=== PATIENT | female | born 1965 | race Caucasian/White ===

== ENCOUNTER 2022-01-23 08:54 | Inpatient (IN) ==
[~2022-01-23 08:54] MED LIST: PIPERACILLIN/TAZOBACTAM 3.375 GM in DEXTROSE 5% 100 ML IV SCH
[2022-01-23] MEDS ORDERED: ONDANSETRON INJ 2 MG/ML 2 ML VIAL IV STA (09:06)
[2022-01-23] MEDS ORDERED: SODIUM CHLORIDE 0.9% 1000ML 1,000 ML IV STA (09:06)
[2022-01-23] MEDS ORDERED: PANTOprazole 80 MG in DEXTROSE 5% 100 ML IV STA (09:12)
[2022-01-23] MEDS ORDERED: fentaNYL citrate 100 MCG/2 ML VIAL IV STA (09:12)
--- NOTE | 2022-01-23 09:15 | Emergency Department Note ---
Impression & Plan Choledocholithiasis with acute cholecystitis, Elevated bilirubin, Transaminitis ED Provider Note Provider: Dante Lopez MD DATE OF SERVICE: 01/23/2022 CHIEF COMPLAINT: Abdominal pain HISTORY OF PRESENT ILLNESS: Patient is a 56-year-old female history of hypertension, diabetes, and GERD presenting here today stating of past several weeks with worsening yesterday and overnight. Reports some nausea vomiting and diarrhea but denies any urinary symptoms. Tried some Tylenol but vomited this up at home. No trauma reported. No other sick contacts. Did have a history of bariatric surgery and hysterectomy in the past with gastric sleeve by her report. Has been taken omeprazole until yesterday when she thinks she threw it up. Upper abdominal pain slight radiation to the back. No lower abdominal symptoms of significance. States it hurts when she takes a deep breath with maybe a few twinges of slight chest pain at times. No suspect food intake. Patient states she feels very thirsty but again just throws everything up she tries to eat or drink. Denies any significant blood in the vomitus or diarrhea. Minimal diarrhea in the overnight. REVIEW OF SYSTEMS: A total of 10 review of systems was obtained and negative except as stated above in the HPI. PAST MEDICAL HISTORY: As noted above MEDICATIONS: Reviewed home medications SOCIAL HISTORY: PHYSICAL EXAM: GENERAL: alert and oriented in no acute distress on stretcher but appears mildly uncomfortable Head: normocephalic and atraumatic EYES: No injection, discharge or icterus. NECK: Trachea midline. ENT: Mucous membranes pink and moist LUNGS: Airway patent. No retractions or tachypnea HEART: Regular rate and rhythm. No chest wall tenderness ABDOMEN: Soft with no significant lower abdominal tenderness. Mild to moderate epigastric tenderness without peritonitis. No guarding. SKIN: Acyanotic, warm, dry, without rashes EXTREMITIES: Without swelling, tenderness or deformity NEUROLOGICAL: No focal deficits. No aphasia. No facial droop or slurred speech. Ambulatory. EK bpm sinus tachycardia. No PVC or PAC. No acute ST segment elevation. Nonspecific inferior lateral T wave changes. QTc 425. CONTINUOUS CARDIAC MONITORING: was ordered and showed a heart rate of 90s-100s bpm in normal sinus rhythm to sinus tachycardia Patient's laboratory studies and imaging reviewed. Differential includes Appendicitis, infections, diverticulitis, UTI, obstruction, mesenteric ischemia, aortic pathology, inflammatory bowel disease, renal colic, PUD, pancreatitis, biliary pathology, hernia, volvulus, constipation, as well as other pathologies. IMPRESSION/MEDICAL DECISION MAKING: No sick contacts, suspect food intake, recent travel. History of bariatric surgery. Epigastric tenderness. Not really a Ross sign. No significant lower abdominal tenderness. Given history of surgical procedures here hand complaints did complete a CT scan of the abdomen pelvis. EKG and basic labs sent as well as troponin. Seems less likely to be cardiac given the constellation of her symptoms. No other sick contacts but could possibly reflect gastroenteritis. Lipase sent as well as LFTs to look for signs of hepatitis or pancreatitis. Treated symptomatically with IV fluids, Zofran, and fentanyl she states she has tolerated IV narcotics before. Blood work here without significant leukocytosis or anemia. Borderline sodium of 135 with some hypokalemia 3.1 noted. No lipase elevation. AST ALT and alkaline phosphatase as well as total bilirubin are elevated. Normal creatinine. CT scan report per radiology shows evidence of biliary duct dilation and acute cholecystitis likely due to stone. Nonspecific enteritis was also suggested per the report. Given this discussed with the surgical team and also gastroenterology given possible need for ERCP. GI evaluated and plans for ERCP. We will have the medicine team evaluate for admission at this time. Empirically covered with cefoxitin and Flagyl in discussion with pharmacy. DIAGNOSIS: Choledocholithiasis, elevated bilirubin, transaminitis, cholecystitis DISPOSITION: Hospitalist will evaluate Patient was agreeable with this plan. Past Med/Surg History Medical History (Updated 01/23/22 @ 12:45 by Tisha Tinajero MD) Acid reflux Bilateral primary osteoarthritis of knee Diabetes mellitus GERD (gastroesophageal reflux disease) HLD (hyperlipidemia) HTN (hypertension) Obesity Tear of medial meniscus of right knee Tear of peroneal tendon of right foot Surgical History History of ankle surgery R ANKLE - NO HARDWARE History of arthroscopy of left knee History of gastric surgery GASTRIC SLEEVE 3 YR AGO History of hysterectomy PONV (postoperative nausea and vomiting) S/P right knee arthroscopy Family History Mother Family history of diabetes mellitus Brother Family history of diabetes mellitus Brother Family history of diabetes mellitus Sister Family history of diabetes mellitus Sister Family history of diabetes mellitus Social History Smoking Status: Never smoker Hx Alcohol Use: No Preferred Language: Tajik Communication Ability: Effective Visual Impairment: No Limitations Process Supervisor Required: No Beliefs That Will Affect Care: Oriental Orthodox Oriental Orthodox Beliefs: TAOISM Current Living Situation: Spouse and Family Current Living Situation Comment: [facility] AGE 9 Feels Safe at Home: Yes Assistive Devices: Glasses Allergies Allergies Allergy/AdvReac Type Severity Reaction Status Date / Time acetaminophen [From Percocet] AdvReac Unknown THROAT Verified 10/20/21 10:17 SWELLING hydrocodone [From Vicodin] AdvReac Unknown THROAT Verified 10/20/21 10:17 SWELLING oxycodone [From Percocet] AdvReac Unknown THROAT Verified 10/20/21 10:17 SWELLING Penicillins AdvReac Unknown STOMACH Verified 10/20/21 10:17 PROBLEMS Sulfa (Sulfonamide AdvReac Unknown STOMACH Verified 10/20/21 10:17 Antibiotics) PROBLEMS Home Meds Home Medications Medication Instructions Recorded Confirmed aspirin 81 mg tablet,delayed 81 mg PO DAILY 11/25/19 01/23/22 release hydrochlorothiazide 25 mg tablet 25 mg PO QAM 11/25/19 01/23/22 multivitamin 1 tab PO DAILY 06/12/21 01/23/22 omeprazole 20 mg capsule,delayed 20 mg PO DAILY 06/12/21 01/23/22 release potassium chloride 10 mEq 10 meq PO BID 10/20/21 01/23/22 capsule,extended release ferrous sulfate 325 mg (65 mg 325 mg PO DAILY 01/23/22 01/23/22 iron) tablet (Iron (ferrous sulfate)) metformin 500 mg tablet 1,000 mg PO BID 01/23/22 01/23/22 Results & Data (ED) Vital Signs Vital Signs - 24 hr 01/23/22 09:01 01/23/22 09:10 01/23/22 09:26 Temperature 36.8 C Temperature Source Temporal Artery Scan Pulse Rate 98 H 92 H Pulse Rate [Apical] 92 H Respiratory Rate 16 18 Respiratory Effort / Characteristics Non-Labored Spontaneous Non-Labored Respiratory Depth Normal Normal Respiratory Pattern Blood Pressure 127/84 Blood Pressure [Right Arm] 158/116 H Blood Pressure Mean 98 Blood Pressure Mean [Right Arm] 130 Pulse Oximetry 97 98 99 Oxygen Delivery Method Room Air Room Air Sepsis Recent Fever Within 48 Hours No Sepsis New/Unexplained Change in Mental Status No Sepsis Action Taken by Nursing No Action Required 01/23/22 10:05 Temperature Temperature Source Pulse Rate Pulse Rate [Apical] 99 H Respiratory Rate 18 Respiratory Effort / Characteristics Non-Labored Respiratory Depth Normal Respiratory Pattern Regular Blood Pressure Blood Pressure [Right Arm] 155/82 H Blood Pressure Mean Blood Pressure Mean [Right Arm] 106 Pulse Oximetry 97 Oxygen Delivery Method Room Air Sepsis Recent Fever Within 48 Hours Sepsis New/Unexplained Change in Mental Status Sepsis Action Taken by Nursing Laboratory Data Result diagrams: 01/23/22 09:22 01/23/22 09:22 Lab Results 01/23/22 01/23/22 01/23/22 Range/Units 09: 09: 10:39 WBC 6.02 (4.8-10.8) K/ul RBC 5.35 H (3.93-5.22) M/uL Hgb 15.1 (12.0-16.0) g/dl Hct 44.9 (34.1-44.9) % MCV 83.9 (80.0-100.0) fL MCH 28.2 (25.0-34.0) pg MCHC 33.6 (32.0-36.0) g/dL RDW Std Deviation 41.5 (36.4-46.3) fL RDW Coeff of Marisel 13.6 (11.5-14.5) % Plt Count 335 (130-400) K/uL MPV 10.9 (9.4-12.3) fL Immature Gran % (Auto) 0.2 % Neut % (Auto) 88.0 % Lymph % (Auto) 6.6 % Angelina % (Auto) 4.0 % Eos % (Auto) 0.5 % Baso % (Auto) 0.7 % Neut # (Auto) 5.30 (1.4-6.5) K/uL Lymph # (Auto) 0.40 L (1.2-3.4) K/uL Angelina # (Auto) 0.24 (0.24-0.82) K/uL Eos # (Auto) 0.03 (0-0.50) K/uL Baso # (Auto) 0.04 (0-0.2) K/uL Immature Gran # (Auto) 0.01 (0.00-0.02) K/uL Sodium 135 L (136-145) mmol/L Potassium 3.1 L (3.5-5.1) mmol/L Chloride 90 L (98-107) mmol/L Carbon Dioxide 31 (21-32) mmol/L Anion Gap 14 H (3-11) BUN 10 (6-23) mg/dl Creatinine 0.78 (0.6-1.2) mg/dl Est Cr Clr Drug Dosing 74.2 ml/min Est GFR ( Amer) 97.1 ml/min Est GFR (Non-Af Amer) 83.8 ml/min BUN/Creatinine Ratio 12.8 (10-20) Glucose 215 H (70-99(Fasting)) mg/dl Calcium 9.6 (8.5-10.1) mg/dl Total Bilirubin 4.8 H (0.2-1.0) mg/dl AST 231 H (13-39) U/L ALT 144 H (7-52) U/L Alkaline Phosphatase 973 H (34-104) U/L Troponin I High Sens 4.7 (0-14) pg/ml Total Protein 8.0 (6.0-8.3) gm/dl Albumin 4.5 (3.4-5.0) gm/dl Globulin 3.5 (2.5-4.0) gm/dl Albumin/Globulin Ratio 1.3 (0.9-2) Lipase 64 (11-82) U/L Urine Color Urine Appearance (Clear) Urine pH (4.5-7.5) Ur Specific Holmes (1.000-1.030) Urine Protein (Negative) Urine Glucose (UA) (Negative) Urine Ketones (Negative) Urine Blood (Negative) Urine Nitrite (Negative) Urine Bilirubin (Negative) Urine Urobilinogen (Negative) Ur Leukocyte Esterase (Negative) SARS-CoV-2, RNA, NAAT NEGATIVE (NEGATIVE) 01/23/22 Range/Units 12:10 WBC (4.8-10.8) K/ul RBC (3.93-5.22) M/uL Hgb (12.0-16.0) g/dl Hct (34.1-44.9) % MCV (80.0-100.0) fL MCH (25.0-34.0) pg MCHC (32.0-36.0) g/dL RDW Std Deviation (36.4-46.3) fL RDW Coeff of Marisel (11.5-14.5) % Plt Count (130-400) K/uL MPV (9.4-12.3) fL Immature Gran % (Auto) % Neut % (Auto) % Lymph % (Auto) % Angelina % (Auto) % Eos % (Auto) % Baso % (Auto) % Neut # (Auto) (1.4-6.5) K/uL Lymph # (Auto) (1.2-3.4) K/uL Angelina # (Auto) (0.24-0.82) K/uL Eos # (Auto) (0-0.50) K/uL Baso # (Auto) (0-0.2) K/uL Immature Gran # (Auto) (0.00-0.02) K/uL Sodium (136-145) mmol/L Potassium (3.5-5.1) mmol/L Chloride (98-107) mmol/L Carbon Dioxide (21-32) mmol/L Anion Gap (3-11) BUN (6-23) mg/dl Creatinine (0.6-1.2) mg/dl Est Cr Clr Drug Dosing ml/min Est GFR ( Amer) ml/min Est GFR (Non-Af Amer) ml/min BUN/Creatinine Ratio (10-20) Glucose (70-99(Fasting)) mg/dl Calcium (8.5-10.1) mg/dl Total Bilirubin (0.2-1.0) mg/dl AST (13-39) U/L ALT (7-52) U/L Alkaline Phosphatase (34-104) U/L Troponin I High Sens (0-14) pg/ml Total Protein (6.0-8.3) gm/dl Albumin (3.4-5.0) gm/dl Globulin (2.5-4.0) gm/dl Albumin/Globulin Ratio (0.9-2) Lipase (11-82) U/L Urine Color Dark Yellow Urine Appearance Clear (Clear) Urine pH 7.0 (4.5-7.5) Ur Specific Holmes > 1.045 H (1.000-1.030) Urine Protein Negative (Negative) Urine Glucose (UA) 1+ H (Negative) Urine Ketones Negative (Negative) Urine Blood Negative (Negative) Urine Nitrite Negative (Negative) Urine Bilirubin 1+ H (Negative) Urine Urobilinogen Positive H (Negative) Ur Leukocyte Esterase Negative (Negative) SARS-CoV-2, RNA, NAAT (NEGATIVE) Administered Medications Discontinued Medications Fentanyl Citrate (Fentanyl Citrate 100 Mcg/2 Ml Vial) 50 mcg IV NOW STA Stop: 01/23/22 09:13 Last Admin: 01/23/22 09:29 Dose: 50 mcg Documented By: NATALY Sodium Chloride (Nss 1000ml) 1,000 mls @ 999 mls/hr IV .Q1H1M STA Stop: 01/23/22 10:06 Last Infusion: 01/23/22 10:32 Dose: 0 mls/hr Documented By: Admin: 01/23/22 09:29 Dose: 999 mls/hr Documented By: NATALY Pantoprazole Sodium 80 mg/ (Dextrose) 100 mls @ 400 mls/hr IV ONE STA Stop: 01/23/22 09:26 Last Infusion: 01/23/22 10:02 Dose: 0 mls/hr Documented By: Admin: 01/23/22 09:30 Dose: 400 mls/hr Documented By: NATALY Sodium Chloride (Nss 1000ml) 1,000 mls @ 999 mls/hr IV .Q1H1M ONE Stop: 01/23/22 11:56 Last Admin: 01/23/22 12:12 Dose: 999 mls/hr Documented By: ATTILA Metronidazole (Flagyl) 500 mg in 100 mls @ 100 mls/hr IV NOW STA Stop: 01/23/22 12:28 Last Admin: 01/23/22 12:12 Dose: 100 mls/hr Documented By: ATTILA Ioversol (Optiray 350 100ml) 94 ml IV ONCE ONE Stop: 01/23/22 10:20 Last Admin: 01/23/22 10:19 Dose: 94 ml Documented By: SOHEILA Ondansetron HCl (Ondansetron Inj 2 Mg/Ml 2 Ml Vial) 4 mg IV NOW STA Stop: 01/23/22 09:07 Last Admin: 01/23/22 09:30 Dose: 4 mg Documented By: NATALY Imaging Data Radiologist's Impression: Abdomen/Pelvis CT 01/23/22 09:06 CT SCAN OF THE ABDOMEN AND PELVIS WITH IV CONTRAST CLINICAL HISTORY: Right-sided abdominal pain. Nausea and vomiting. Diarrhea. COMPARISON STUDY: No priors. TECHNIQUE: Following the IV administration of 94 cc of Optiray 350, CT scan of the abdomen and pelvis is performed from the lung bases to the proximal femora. Images are reviewed in the axial, sagittal, and coronal planes. IV contrast was administered without complication. A dose lowering technique was utilized adhering to the principles of ALARA. CT DOSE: 416.94 mGy.cm FINDINGS: Lung bases: The heart is normal in size and without pericardial effusion. The lung bases are clear. Liver: The contrast-enhanced liver is normal in size, contour, and attenuation. There is mild to moderate intrahepatic biliary ductal dilatation. The hepatic veins and portal veins are patent. Gallbladder: The gallbladder is distended. The gallbladder wall is thickened and there is mild surrounding inflammation. The common bile duct is dilated, measuring up to 1.6 cm in diameter. A filling defect within the distal common bile duct at the pancreatic head seen on image #184 likely represents choledocholithiasis. Spleen: Normal in size and attenuation. Pancreas: Unremarkable. Adrenal glands: Unremarkable. Kidneys: The contrast enhanced kidneys are normal in size and without hydronephrosis. The kidneys enhance symmetrically. Abdominal vasculature: The abdominal aorta is normal in course and caliber noting mild to moderate atherosclerotic calcification. Bowel: Stomach and bowel: There is a small hiatal hernia. There is evidence of previous gastric surgery. There is mild infiltration seen around loops of proximal jejunum in the mid abdomen on images #211 and #235. No focally thick- walled small bowel lops are identified. There is no pneumatosis intestinalis or portal venous gas. No bowel obstruction is seen. The appendix is well- visualized and normal. Peritoneum: There is no intraperitoneal free air or abdominal ascites. Lymphadenopathy: Prominent mesenteric lymph nodes are likely reactive. Pelvic viscera: The bladder is normal as visualized. The uterus is surgically absent. No adnexal lesion is seen. There is a fat containing right groin hernia. Skeletal structures: The skeletal structures are osteopenic. There is mild lumbosacral spondylosis. No lytic or blastic lesions are seen. IMPRESSION: 1. There is intra and extrahepatic biliary ductal dilatation with evidence of acute cholecystitis. This is likely due to choledocholithiasis. Clinical and laboratory correlation will be required and surgical evaluation is advised. 2. There is mild infiltration seen around loops of jejunum in the mid abdomen. The appearance suggests a nonspecific enteritis and clinical correlation will be required. 3. Additional findings as above. ACT 112: Negative or not required by law. Electronically signed by: Jethro Conroy M.D. 01/23/2022 10:35 AM Chest X-Ray 01/23/22 09:14 XR chest 1V portable HISTORY: 56 years-old Female epigastric pain . Acute epigastric abdominal pain COMPARISON: None TECHNIQUE: Portable AP view of the chest FINDINGS: Cardiomediastinal and hilar silhouettes are within normal limits. No pneumothorax, pleural effusion, airspace consolidation or overt pulmonary edema. Degenerative changes of the shoulders and spine. Surgical clips of the upper abdomen. IMPRESSION: No acute process. ACT 112: Negative or not required by law. The above report was generated using voice recognition software. It may contain grammatical, syntax or spelling errors. Electronically signed by: Alfred Rodriguez M.D. 01/23/2022 9:57 AM Discharge Plan Visit Data Chief Complaint: Abdominal Pain Stated Complaint: SEVERE ABD PAIN, FEVER, CHILLS, NAUSEA ED Provider: Dante Lopez Discharge Problem: Choledocholithiasis with acute cholecystitis, Elevated bilirubin, Transaminitis Forms Stand Alone Forms: [facility] Prescriptions Prescriptions: No Action multivitamin Tablet 1 tab PO DAILY omeprazole 20 mg capsule,delayed release(DR/EC) 20 mg PO DAILY potassium chloride 10 mEq capsule, extended release 10 meq PO BID aspirin 81 mg Tablet,Delayed Release (Dr/Ec) 81 mg PO DAILY hydrochlorothiazide 25 mg Tablet 25 mg PO QAM metformin 500 mg tablet 1,000 mg PO BID ferrous sulfate [Iron (ferrous sulfate)] 325 mg (65 mg iron) Tablet 325 mg PO DAILY Referrals Referrals: Divine Mendoza, [Primary Care Provider] -
[2022-01-23 09:43] LABS: Hematocrit (blood only) 44.9 % (34.1-44.9); Hemoglobin 15.1 g/dl (12.0-16.0); Mean Corpuscular Hemoglobin 28.2 pg (25.0-34.0); Mean Corpuscular Hgb Conc 33.6 g/dL (32.0-36.0); Mean Corpuscular Volume 83.9 fL (80.0-100.0); Mean Platelet Volume 10.9 fL (9.4-12.3); Platelet Count 335 K/uL (130-400); RDW Coefficient of Variation 13.6 % (11.5-14.5); RDW Standard Deviation 41.5 fL (36.4-46.3); Red Blood Count 5.35 M/uL (3.93-5.22); White Blood Count 6.02 K/ul (4.8-10.8)
--- NOTE | 2022-01-23 09:58 | XRay Report ---
XR chest 1V portable HISTORY: 56 years-old Female epigastric pain . Acute epigastric abdominal pain COMPARISON: None TECHNIQUE: Portable AP view of the chest FINDINGS: Cardiomediastinal and hilar silhouettes are within normal limits. No pneumothorax, pleural effusion, airspace consolidation or overt pulmonary edema. Degenerative changes of the shoulders and spine. Corie gical clips of the upper abdomen. IMPRESSION: No acute process. ACT 112: Negative or not required by law. The above report was generated using voice recognition software. It may contain grammatical, syntax o r spelling errors. Electronically signed by: Alfred Rodriguez M.D. 01/23/2022 9:57 AM
[2022-01-23 10:02] LABS: Basophils # (auto) 0.04 K/uL (0-0.2); Basophils % (auto) 0.7 %; Eosinophils # (auto) 0.03 K/uL (0-0.50); Eosinophils % (auto) 0.5 %; Immature Granulocytes # (auto) 0.01 K/uL (0.00-0.02); Immature Granulocytes % (auto) 0.2 %; Lymphocytes % (auto) 6.6 %; Monocytes # (auto) 0.24 K/uL (0.24-0.82)
[2022-01-23 10:07] LABS: Albumin Globulin Ratio 1.3 (0.9-2); Albumin Level 4.5 gm/dl (3.4-5.0); BUN Creatinine Ratio 12.8 (10-20); Bilirubin,Total 4.8 mg/dl (0.2-1.0); Calcium 9.6 mg/dl (8.5-10.1); Creatinine Clr Calc Pharmacy 74.2 ml/min; Est GFR (African American) 97.1 ml/min; Est GFR (Non-African American) 83.8 ml/min; Globulin 3.5 gm/dl (2.5-4.0); Potassium 3.1 mmol/L (3.5-5.1); Troponin I High Sensitivity 4.7 pg/ml (0-14)
[2022-01-23] MEDS ORDERED: OPTIRAY 350 100ml IV ONE (10:19)
--- NOTE | 2022-01-23 10:37 | CT Scan Report ---
CT SCAN OF THE ABDOMEN AND PELVIS WITH IV CONTRAST CLINICAL HISTORY: Right-sided abdominal pain. Nausea and vomiting. Diarrhea. COMPARISON STUDY: No priors. TECHNIQUE: Following the IV administration of 94 cc of Optiray 350, CT scan of the abdomen and pelvi s is performed from the lung bases to the proximal femora. Images are reviewed in the axial, sagittal , and coronal planes. IV contrast was administered without complication. A dose lowering technique wa s utilized adhering to the principles of ALARA. CT DOSE: 416.94 mGy.cm FINDINGS: Lung bases: The heart is normal in size and without pericardial effusion. The lung bases are clear. Liver: The contrast-enhanced liver is normal in size, contour, and attenuation. There is mild to mode rate intrahepatic biliary ductal dilatation. The hepatic veins and portal veins are patent. Gallbladder: The gallbladder is distended. The gallbladder wall is thickened and there is mild surrou nding inflammation. The common bile duct is dilated, measuring up to 1.6 cm in diameter. A filling de fect within the distal common bile duct at the pancreatic head seen on image #184 likely represents c holedocholithiasis. Spleen: Normal in size and attenuation. Pancreas: Unremarkable. Adrenal glands: Unremarkable. Kidneys: The contrast enhanced kidneys are normal in size and without hydronephrosis. The kidneys enh ance symmetrically. Abdominal vasculature: The abdominal aorta is normal in course and caliber noting mild to moderate at herosclerotic calcification. Bowel: Stomach and bowel: There is a small hiatal hernia. There is evidence of previous gastric surge ry. There is mild infiltration seen around loops of proximal jejunum in the mid abdomen on images #21 1 and #235. No focally thick-walled small bowel lops are identified. There is no pneumatosis intestin reji or portal venous gas. No bowel obstruction is seen. The appendix is well-visualized and normal. Peritoneum: There is no intraperitoneal free air or abdominal ascites. Lymphadenopathy: Prominent mesenteric lymph nodes are likely reactive. Pelvic viscera: The bladder is normal as visualized. The uterus is surgically absent. No adnexal lesi on is seen. There is a fat containing right groin hernia. Skeletal structures: The skeletal structures are osteopenic. There is mild lumbosacral spondylosis. N o lytic or blastic lesions are seen. IMPRESSION: 1. There is intra and extrahepatic biliary ductal dilatation with evidence of acute cholecystitis. Th is is likely due to choledocholithiasis. Clinical and laboratory correlation will be required and lio gical evaluation is advised. 2. There is mild infiltration seen around loops of jejunum in the mid abdomen. The appearance suggest s a nonspecific enteritis and clinical correlation will be required. 3. Additional findings as above. ACT 112: Negative or not required by law. Electronically signed by: Jethro Conroy M.D. 01/23/2022 10:35 AM
[2022-01-23] MEDS ORDERED: SODIUM CHLORIDE 0.9% 1000ML 1,000 ML IV ONE (10:56)
[2022-01-23] MEDS ORDERED: INDOMETHACIN 50 MG SUPP PR ONE ×2 (11:11→15:39)
--- NOTE | 2022-01-23 11:18 | Gastrointestinal Consultation ---
Date of Consultation January 23, 2022 Assessment & Plan (1) Choledocholithiasis with acute cholecystitis: Pt is a 56 yo female w c/o fever, chills, postprandial upper abd pain, n/v, workup showed elevated LFT and CT w signs of intra/extrahepatic biliary ductal and CBD dilation likely due to choledocholithiasis w cholecystitis present. - NPO - Plan for ERCP in OR today by Dr. Biggs - Surgery consulted for possible cholecystectomy - IVF and IV antibx support - COVID 19 test pending - GI to give further recs after ERCP completed Supervising Physician Co-Signing Physician Notes I performed a history and physical examination of the patient today, including specifically on physical exam - soft abdomen. I have discussed the patient's management with the advanced practitioner. Please refer to the nurse practitioner's note for the documented findings and plan of care. ERCP today. Patient was explained in detail regarding risks, benefits, limitations and alternatives of the above endoscopic procedure. Risks of intravenous sedation used for procedure were also explained. Risks include, but not limited to perforation, bleeding, infection, respiratory distress, cardiac arrest and . Patient is also aware about the possibility of missed lesion. Patient's questions were answered. The patient verbalized understanding the information and agreed to undergo the procedure. History of Present Illness Reason for Consultation: Choledocholithiasis Requesting Physician: Dr. Dante Lopez Attending Physician: Dr. Ami Biggs History of Present Illness Pt is a 56 yo female who presented to ED today w c/o fever, n/v, abd pain and intermittent loose stools. She has had these symptoms for few months, however they are becoming more frequent and intense. Abd pain is worse w eating. Denies s/s of GI bleeding. She hasn't had BM today. On eval, noted to have no leukocytosis, LFTs up: Tbili 4.8, AST 231, ALT 144, Alk phose 973, lipase normal. CT abd/pelvis w contrast showed intra and extrahepatic biliary ductal dilatation with evidence of acute cholecystitis. There is likely due to choledocholithiasis and mild infiltration seen around loops of jejunum in the mid abdomen Allergies Allergy/AdvReac Type Severity Reaction Status Date / Time acetaminophen [From Percocet] AdvReac Unknown THROAT Verified 10/20/21 10:17 SWELLING hydrocodone [From Vicodin] AdvReac Unknown THROAT Verified 10/20/21 10:17 SWELLING oxycodone [From Percocet] AdvReac Unknown THROAT Verified 10/20/21 10:17 SWELLING Penicillins AdvReac Unknown STOMACH Verified 10/20/21 10:17 PROBLEMS Sulfa (Sulfonamide AdvReac Unknown STOMACH Verified 10/20/21 10:17 Antibiotics) PROBLEMS Home Medications Medication Instructions Recorded Confirmed Type aspirin 81 mg tablet,delayed 81 mg PO DAILY 11/25/19 01/23/22 History release hydrochlorothiazide 25 mg tablet 25 mg PO QAM 11/25/19 01/23/22 History multivitamin 1 tab PO DAILY 06/12/21 01/23/22 History omeprazole 20 mg capsule,delayed 20 mg PO DAILY 06/12/21 01/23/22 History release potassium chloride 10 mEq 10 meq PO BID 10/20/21 01/23/22 History capsule,extended release ferrous sulfate 325 mg (65 mg 325 mg PO DAILY 01/23/22 01/23/22 History iron) tablet (Iron (ferrous sulfate)) metformin 500 mg tablet 1,000 mg PO BID 01/23/22 01/23/22 History Patient History Medical History Acid reflux Bilateral primary osteoarthritis of knee Diabetes mellitus GERD (gastroesophageal reflux disease) HLD (hyperlipidemia) HTN (hypertension) Obesity Tear of medial meniscus of right knee Tear of peroneal tendon of right foot Surgical History History of ankle surgery R ANKLE - NO HARDWARE History of arthroscopy of left knee History of gastric surgery GASTRIC SLEEVE 3 YR AGO History of hysterectomy PONV (postoperative nausea and vomiting) S/P right knee arthroscopy Family History Mother Family history of diabetes mellitus Brother Family history of diabetes mellitus Brother Family history of diabetes mellitus Sister Family history of diabetes mellitus Sister Family history of diabetes mellitus Social History Smoking Status: Never smoker Second Hand Exposure: No; Do You Dip or Chew Tobacco: No; Tobacco Cessation Education Requested by Patient: No Hx Alcohol Use: No Hx Substance Use: No Preferred Language: Malawian Communication Ability: Effective Visual Impairment: No Limitations Commuter Pilot Required: No Beliefs That Will Affect Care: None Current Living Situation: Spouse Current Living Situation Comment: VINNIE AGE 11 Other Information That Helps Us Care for You: No Feels Safe at Home: Yes Safety Concerns: Feels Safe At This Time Assistive Devices: None Review of Systems Review of Systems: All systems reviewed & are unremarkable except as noted in HPI & below Physical Exam Constitutional: WD/WN, vitals as above well groomed, cooperative and comfortable Eyes: PERRL, conjunctivae normal, anicteric sclerae ENMT: external ear and nose normal, oropharynx normal Respiratory: normal respiratory effort, lungs clear to auscultation Cardiovascular: RRR, no murmur, no edema Gastrointestinal (Abdomen): Soft, TTP epigastric, RUQ, hypoactive BS Skin: no rashes, warm and dry no jaundice Psychiatric: A+Ox3, euthymic affect Lymphatic: no lymphedema Results & Data ([facility]) Vital Signs (Past 12 Hours) Vital Signs Temp Pulse Pulse Resp BP BP Pulse Ox 01/23/22 10:05 99 H 18 155/82 H 97 01/23/22 09:26 92 H 99 01/23/22 09:10 92 H 18 158/116 H 98 01/23/22 09:01 36.8 C 98 H 16 127/84 97 O2 Del Method 01/23/22 10:05 Room Air 01/23/22 09:26 Room Air 01/23/22 09:10 01/23/22 09:01 Room Air
[2022-01-23] MEDS ORDERED: cefOXitin 2,000 MG/60 ML BAG IV STA (11:28)
[2022-01-23] MEDS ORDERED: metroNIDAZOLE 500 MG/100 ML BAG IV STA (11:29)
--- NOTE | 2022-01-23 12:09 | Surgery Consultation ---
Date of Consultation January 23, 2022 Assessment & Plan (1) Choledocholithiasis with acute cholecystitis: (2) Transaminitis: (3) Elevated bilirubin: Plan 56 year-old female with intermittent history of epigastric/RUQ abdominal pain with nausea and vomiting after eating for past few months who presented to ED with complaint of increasing abdominal pain and nausea and vomiting. Not able to keep much down for last two days. CT scan showing acute calculous cholecystitis with choledocholithiasis and common bile duct measuring 1.6 cm. T. bili up to 4 and elevated LFTS and alk phos. Plan: Discussed with patient her imaging findings and given biliary obstruction recommend cholecystectomy during this admission to prevent further biliary obstruction. Going for ERCP today. Discussed laparoscopic cholecystectomy, risks of procedure and expected recovery time Keep NPO for ERCP today will determine timing of lap eduard after discussed with Dr. Hodge. Repeat am labs including cbc, cmp to monitor t. bili and lfts. Dr. Hodge has seen patient and discussed combined ERCP and laparoscopic cholecystectomy today after discussion with OR staff. Please see addendum for further recommendations/plan. Supervising Physician Co-Signing Physician Notes I have seen and examined the patient agree with the above assessment and plan. In brief, she is undergoing an ERCP today for choledocholithiasis. I discussed with her the possibility of laparoscopic cholecystectomy at the same time. She is agreeable with this plan. We discussed the risks and benefits, and consent was obtained. We will take her to the operating room at the earliest convenience. History of Present Illness Reason for Consultation: acute calculous cholecystitis with choledocholithiasis Requesting Physician: Dante Lopez MD History of Present Illness Reshma is a 56 year-old female with history of hypertension, hyperlipidemia, uncontrolled type 2 diabetes, osteoarthritis , obesity, and vitamin D deficiency who presented to emergency room with complaint of epigastric/RUQ abdominal pain with associated nausea , vomiting, and diarrhea that has been off and on for past few months. Symptoms started to increase in frequency with about 1 episode per week and then developed severe pain with nausea and vomiting last evening. She has history of gastric sleeve operation 6 years ago done for obesity and diabetes. Weighed 250 lbs. Procedure was done laparoscopically. History of hysterectomy 30 years ago. No other abdominal surgeries. She denies of chest pain, shortness of breath, hematemesis, bloody stools, black/tarry stools, difficulty urinating. States her pain was about 15/10 upon presentation. Now about 4/10. Had pain medication in the ED upon arrival which helped. Had some fevers at home. Temperature about 99.8. Tried to take Tylenol but unable to keep it down. Gi has seen patient and added her on for ERCP today Allergies Allergy/AdvReac Type Severity Reaction Status Date / Time acetaminophen [From Percocet] AdvReac Unknown THROAT Verified 10/20/21 10:17 SWELLING hydrocodone [From Vicodin] AdvReac Unknown THROAT Verified 10/20/21 10:17 SWELLING oxycodone [From Percocet] AdvReac Unknown THROAT Verified 10/20/21 10:17 SWELLING Penicillins AdvReac Unknown STOMACH Verified 10/20/21 10:17 PROBLEMS Sulfa (Sulfonamide AdvReac Unknown STOMACH Verified 10/20/21 10:17 Antibiotics) PROBLEMS Home Medications Medication Instructions Recorded Confirmed Type aspirin 81 mg tablet,delayed 81 mg PO DAILY 11/25/19 01/23/22 History release hydrochlorothiazide 25 mg tablet 25 mg PO QAM 11/25/19 01/23/22 History multivitamin 1 tab PO DAILY 06/12/21 01/23/22 History omeprazole 20 mg capsule,delayed 20 mg PO DAILY 06/12/21 01/23/22 History release potassium chloride 10 mEq 10 meq PO BID 10/20/21 01/23/22 History capsule,extended release ferrous sulfate 325 mg (65 mg 325 mg PO DAILY 01/23/22 01/23/22 History iron) tablet (Iron (ferrous sulfate)) metformin 500 mg tablet 1,000 mg PO BID 01/23/22 01/23/22 History Patient History Medical History Acid reflux Bilateral primary osteoarthritis of knee Diabetes mellitus GERD (gastroesophageal reflux disease) HLD (hyperlipidemia) HTN (hypertension) Obesity Tear of medial meniscus of right knee Tear of peroneal tendon of right foot Surgical History History of ankle surgery R ANKLE - NO HARDWARE History of arthroscopy of left knee History of gastric surgery GASTRIC SLEEVE 3 YR AGO History of hysterectomy PONV (postoperative nausea and vomiting) S/P right knee arthroscopy Family History Mother Family history of diabetes mellitus Brother Family history of diabetes mellitus Brother Family history of diabetes mellitus Sister Family history of diabetes mellitus Sister Family history of diabetes mellitus Social History Smoking Status: Never smoker Second Hand Exposure: No; Do You Dip or Chew Tobacco: No; Tobacco Cessation Education Requested by Patient: No Hx Alcohol Use: No Hx Substance Use: No Preferred Language: Mohawk Communication Ability: Effective Visual Impairment: No Limitations Manager Registration Required: No Beliefs That Will Affect Care: None Current Living Situation: Spouse Current Living Situation Comment: VINNIE AGE 11 Other Information That Helps Us Care for You: No Feels Safe at Home: Yes Safety Concerns: Feels Safe At This Time Assistive Devices: None Review of Systems Review of Systems: All systems reviewed & are unremarkable except as noted in HPI & below Physical Exam Constitutional: WD/WN, vitals as above + obese; no acute distress and not ill appearing Respiratory: normal respiratory effort, lungs clear to auscultation Cardiovascular: RRR, no murmur, no edema Gastrointestinal (Abdomen): Inspection/Auscultation: abdomen normal to inspection, normal bowel sounds and + abdominal surgical scar (laparoscopic scars and hysterectomy scar); abdomen not distended Percussion/Palpation: + abdomen tender (epigastrium and RUQ) and abdomen soft; no guarding and abdomen not rigid Skin: no rashes, warm and dry no jaundice Psychiatric: A+Ox3, euthymic affect Results & Data ([facility]) Vital Signs (Past 12 Hours) Vital Signs Temp Pulse Pulse Resp BP BP Pulse Ox 01/23/22 10:05 99 H 18 155/82 H 97 01/23/22 09:26 92 H 99 01/23/22 09:10 92 H 18 158/116 H 98 01/23/22 09:01 36.8 C 98 H 16 127/84 97 O2 Del Method 01/23/22 10:05 Room Air 01/23/22 09:26 Room Air 01/23/22 09:10 01/23/22 09:01 Room Air Laboratory Results 01/23/22 01/23/22 01/23/22 Range/Units 10:39 09:22 09:22 WBC 6.02 (4.8-10.8) K/ul RBC 5.35 H (3.93-5.22) M/uL Hgb 15.1 (12.0-16.0) g/dl Hct 44.9 (34.1-44.9) % MCV 83.9 (80.0-100.0) fL MCH 28.2 (25.0-34.0) pg MCHC 33.6 (32.0-36.0) g/dL RDW Std Deviation 41.5 (36.4-46.3) fL RDW Coeff of Marisel 13.6 (11.5-14.5) % Plt Count 335 (130-400) K/uL MPV 10.9 (9.4-12.3) fL Immature Gran % (Auto) 0.2 % Neut % (Auto) 88.0 % Lymph % (Auto) 6.6 % Page % (Auto) 4.0 % Eos % (Auto) 0.5 % Baso % (Auto) 0.7 % Neut # (Auto) 5.30 (1.4-6.5) K/uL Lymph # (Auto) 0.40 L (1.2-3.4) K/uL Page # (Auto) 0.24 (0.24-0.82) K/uL Eos # (Auto) 0.03 (0-0.50) K/uL Baso # (Auto) 0.04 (0-0.2) K/uL Immature Gran # (Auto) 0.01 (0.00-0.02) K/uL Sodium 135 L (136-145) mmol/L Potassium 3.1 L (3.5-5.1) mmol/L Chloride 90 L (98-107) mmol/L Carbon Dioxide 31 (21-32) mmol/L Anion Gap 14 H (3-11) BUN 10 (6-23) mg/dl Creatinine 0.78 (0.6-1.2) mg/dl Est Cr Clr Drug Dosing 74.2 ml/min Est GFR ( Amer) 97.1 ml/min Est GFR (Non-Af Amer) 83.8 ml/min BUN/Creatinine Ratio 12.8 (10-20) Glucose 215 H (70-99(Fasting)) mg/dl Calcium 9.6 (8.5-10.1) mg/dl Total Bilirubin 4.8 H (0.2-1.0) mg/dl AST 231 H (13-39) U/L ALT 144 H (7-52) U/L Alkaline Phosphatase 973 H (34-104) U/L Troponin I High Sens 4.7 (0-14) pg/ml Total Protein 8.0 (6.0-8.3) gm/dl Albumin 4.5 (3.4-5.0) gm/dl Globulin 3.5 (2.5-4.0) gm/dl Albumin/Globulin Ratio 1.3 (0.9-2) Lipase 64 (11-82) U/L SARS-CoV-2, RNA, NAAT NEGATIVE (NEGATIVE) Diagnostic Findings CT SCAN OF THE ABDOMEN AND PELVIS WITH IV CONTRAST CLINICAL HISTORY: Right-sided abdominal pain. Nausea and vomiting. Diarrhea. COMPARISON STUDY: No priors. TECHNIQUE: Following the IV administration of 94 cc of Optiray 350, CT scan of the abdomen and pelvis is performed from the lung bases to the proximal femora. Images are reviewed in the axial, sagittal, and coronal planes. IV contrast was administered without complication. A dose lowering technique was utilized adhering to the principles of ALARA. CT DOSE: 416.94 mGy.cm FINDINGS: Lung bases: The heart is normal in size and without pericardial effusion. The lung bases are clear. Liver: The contrast-enhanced liver is normal in size, contour, and attenuation. There is mild to moderate intrahepatic biliary ductal dilatation. The hepatic veins and portal veins are patent. Gallbladder: The gallbladder is distended. The gallbladder wall is thickened and there is mild surrounding inflammation. The common bile duct is dilated, measuring up to 1.6 cm in diameter. A filling defect within the distal common bile duct at the pancreatic head seen on image #184 likely represents choledocholithiasis. Spleen: Normal in size and attenuation. Pancreas: Unremarkable. Adrenal glands: Unremarkable. Kidneys: The contrast enhanced kidneys are normal in size and without hydronephrosis. The kidneys enhance symmetrically. Abdominal vasculature: The abdominal aorta is normal in course and caliber noting mild to moderate atherosclerotic calcification. Bowel: Stomach and bowel: There is a small hiatal hernia. There is evidence of previous gastric surgery. There is mild infiltration seen around loops of proximal jejunum in the mid abdomen on images #211 and #235. No focally thick- walled small bowel lops are identified. There is no pneumatosis intestinalis or portal venous gas. No bowel obstruction is seen. The appendix is well- visualized and normal. Peritoneum: There is no intraperitoneal free air or abdominal ascites. Lymphadenopathy: Prominent mesenteric lymph nodes are likely reactive. Pelvic viscera: The bladder is normal as visualized. The uterus is surgically absent. No adnexal lesion is seen. There is a fat containing right groin hernia. Skeletal structures: The skeletal structures are osteopenic. There is mild lumbosacral spondylosis. No lytic or blastic lesions are seen. IMPRESSION: 1. There is intra and extrahepatic biliary ductal dilatation with evidence of acute cholecystitis. This is likely due to choledocholithiasis. Clinical and laboratory correlation will be required and surgical evaluation is advised. 2. There is mild infiltration seen around loops of jejunum in the mid abdomen. The appearance suggests a nonspecific enteritis and clinical correlation will be required. 3. Additional findings as above.
[2022-01-23 12:33] LABS: Appearance Urine Clear (Clear); Blood Urine Negative (Negative); Color Urine Dark Yellow; Glucose Urine UA 1+ (Negative); Ketones Urine Negative (Negative); Leukocyte Esterase Urine Negative (Negative); Nitrite Urine Negative (Negative); Protein Urine Negative (Negative); Specific Gravity Urine > 1.045 (1.000-1.030); Urobilinogen Urine Positive (Negative)
[2022-01-23 12:37] LABS: Bilirubin Urine 1+ (Negative)
--- NOTE | 2022-01-23 12:47 | History & Physical Report ---
Date of Service January 23, 2022 Assessment & Plan (1) Choledocholithiasis with acute cholecystitis: (2) Elevated bilirubin: (3) Transaminitis: (4) Diabetes mellitus: (5) HTN (hypertension): (6) Mixed hyperlipidemia: (7) GERD (gastroesophageal reflux disease): Plan Worsening abd pain with nausea and elevated LFTs and Tbili -2/2 acute cholecystitis with possible choledocholithiasis -GI and Gen surgery already consulted -VSS except slight increase BP -started the pt on NS maintenance fluids (150 cc/hr) -started the pt on zosyn q6hr -IV Zofran prn -Allergic to oxycodone but tolerated tramadol in the past ----- prn pain management -NPO for now -SCD for DVT ppx - hold omeprazole and aspirin -started pt on protonix 40mg daily - trend CMP DMII: - on metformin ---- hold and started pt on ISS HTN with hx of hypoK+: -repleted with IV KCL -continue home HCTZ and KCL dose GERD/iron def anemia: -continue home meds Diet: NPO DVT PPx: SCD Code Status: FULL CODE Emergency Contact: Vu [phone] History of Present Illness Chief Complaint: abd pain Primary Care Provider: Divine Mendoza DO Pt is a 56 y/o F with hx of HTN, Gastric sleeve, HLD, GERD, DMII, Iron def anemia, hypoK+ came to the ER with worsening epigastric abd pain, Nausea. Per pt she has been having intermittent epigastric abd pain which usually resolved with vomiting but last few days it is worsening. Denied any fever, CP, SOB or GODDARD. Allergies Allergy/AdvReac Type Severity Reaction Status Date / Time acetaminophen [From Percocet] AdvReac Unknown THROAT Verified 10/20/21 10:17 SWELLING hydrocodone [From Vicodin] AdvReac Unknown THROAT Verified 10/20/21 10:17 SWELLING oxycodone [From Percocet] AdvReac Unknown THROAT Verified 10/20/21 10:17 SWELLING Penicillins AdvReac Unknown STOMACH Verified 10/20/21 10:17 PROBLEMS Sulfa (Sulfonamide AdvReac Unknown STOMACH Verified 10/20/21 10:17 Antibiotics) PROBLEMS Home Medications Medication Instructions Recorded Confirmed Type aspirin 81 mg tablet,delayed 81 mg PO DAILY 11/25/19 01/23/22 History release hydrochlorothiazide 25 mg tablet 25 mg PO QAM 11/25/19 01/23/22 History multivitamin 1 tab PO DAILY 06/12/21 01/23/22 History omeprazole 20 mg capsule,delayed 20 mg PO DAILY 06/12/21 01/23/22 History release potassium chloride 10 mEq 10 meq PO BID 10/20/21 01/23/22 History capsule,extended release ferrous sulfate 325 mg (65 mg 325 mg PO DAILY 01/23/22 01/23/22 History iron) tablet (Iron (ferrous sulfate)) metformin 500 mg tablet 1,000 mg PO BID 01/23/22 01/23/22 History Past Med/Surg History Medical History (Updated 01/23/22 @ 12:45 by Tisha Tinajero MD) Acid reflux Bilateral primary osteoarthritis of knee Diabetes mellitus GERD (gastroesophageal reflux disease) HLD (hyperlipidemia) HTN (hypertension) Obesity Tear of medial meniscus of right knee Tear of peroneal tendon of right foot Surgical History History of ankle surgery R ANKLE - NO HARDWARE History of arthroscopy of left knee History of gastric surgery GASTRIC SLEEVE 3 YR AGO History of hysterectomy PONV (postoperative nausea and vomiting) S/P right knee arthroscopy Family History Mother Family history of diabetes mellitus Brother Family history of diabetes mellitus Brother Family history of diabetes mellitus Sister Family history of diabetes mellitus Sister Family history of diabetes mellitus Social History Smoking Status: Never smoker Hx Alcohol Use: No Preferred Language: Stateless Communication Ability: Effective Visual Impairment: No Limitations Pulmonary Function Technologist Required: No Beliefs That Will Affect Care: Samaritan Samaritan Beliefs: SPIRITISM Current Living Situation: Spouse and Family Current Living Situation Comment: VINNIE AGE 9 Feels Safe at Home: Yes Assistive Devices: Glasses Review of Systems Review of Systems: At least 10 Review of systems were reviewed and all negative except as indicated in HPI Physical Exam Physical Exam: General:. NAD, well developed, well nourished, average body habitus HEENT:. Normocephalic and atraumatic, Normal Conjunctiva, EOMI, Sclera is non- icteric Lungs:. No signs of respiratory distress, CTA, no wheezing or crackles Heart:. Normal S1, S2, no murmur Abdominal:.diffuse TTP of the abd but more on the epigastric and RUQ, no rebound tenderness but mild guarding, ND, Soft, normal BS MSK:.mild b/l pitting edema of LE Psych:. AAOx3, normal affect Results & Data Results & Data ([facility]) Vital Signs (Past 12 Hours) Vital Signs Temp Pulse Pulse Resp BP BP Pulse Ox 01/23/22 10:05 99 H 18 155/82 H 97 01/23/22 09:26 92 H 99 01/23/22 09:10 92 H 18 158/116 H 98 01/23/22 09:01 36.8 C 98 H 16 127/84 97 O2 Del Method 01/23/22 10:05 Room Air 01/23/22 09:26 Room Air 01/23/22 09:10 01/23/22 09:01 Room Air Laboratory Results Short CBC 01/23/22 Range/Units 09:22 WBC 6.02 (4.8-10.8) K/ul Hgb 15.1 (12.0-16.0) g/dl Hct 44.9 (34.1-44.9) % Plt Count 335 (130-400) K/uL BMP 01/23/22 09:22 Sodium 135 L Potassium 3.1 L Chloride 90 L Carbon Dioxide 31 BUN 10 Creatinine 0.78 Glucose 215 H Calcium 9.6 Liver Function 01/23/22 Range/Units 09:22 Total Bilirubin 4.8 H (0.2-1.0) mg/dl AST 231 H (13-39) U/L ALT 144 H (7-52) U/L Alkaline Phosphatase 973 H (34-104) U/L Albumin 4.5 (3.4-5.0) gm/dl Urine 01/23/22 Range/Units 12:10 Urine Color Dark Yellow Urine Appearance Clear (Clear) Urine pH 7.0 (4.5-7.5) Ur Specific [place] > 1.045 H (1.000-1.030) Urine Protein Negative (Negative) Urine Glucose (UA) 1+ H (Negative) Diagnostic Findings Abdomen/Pelvis CT 01/23/22 09:06 CT SCAN OF THE ABDOMEN AND PELVIS WITH IV CONTRAST CLINICAL HISTORY: Right-sided abdominal pain. Nausea and vomiting. Diarrhea. COMPARISON STUDY: No priors. TECHNIQUE: Following the IV administration of 94 cc of Optiray 350, CT scan of the abdomen and pelvis is performed from the lung bases to the proximal femora. Images are reviewed in the axial, sagittal, and coronal planes. IV contrast was administered without complication. A dose lowering technique was utilized adhering to the principles of ALARA. CT DOSE: 416.94 mGy.cm FINDINGS: Lung bases: The heart is normal in size and without pericardial effusion. The lung bases are clear. Liver: The contrast-enhanced liver is normal in size, contour, and attenuation. There is mild to moderate intrahepatic biliary ductal dilatation. The hepatic veins and portal veins are patent. Gallbladder: The gallbladder is distended. The gallbladder wall is thickened and there is mild surrounding inflammation. The common bile duct is dilated, measuring up to 1.6 cm in diameter. A filling defect within the distal common bile duct at the pancreatic head seen on image #184 likely represents choledocholithiasis. Spleen: Normal in size and attenuation. Pancreas: Unremarkable. Adrenal glands: Unremarkable. Kidneys: The contrast enhanced kidneys are normal in size and without hydronephrosis. The kidneys enhance symmetrically. Abdominal vasculature: The abdominal aorta is normal in course and caliber noting mild to moderate atherosclerotic calcification. Bowel: Stomach and bowel: There is a small hiatal hernia. There is evidence of previous gastric surgery. There is mild infiltration seen around loops of proximal jejunum in the mid abdomen on images #211 and #235. No focally thick- walled small bowel lops are identified. There is no pneumatosis intestinalis or portal venous gas. No bowel obstruction is seen. The appendix is well- visualized and normal. Peritoneum: There is no intraperitoneal free air or abdominal ascites. Lymphadenopathy: Prominent mesenteric lymph nodes are likely reactive. Pelvic viscera: The bladder is normal as visualized. The uterus is surgically absent. No adnexal lesion is seen. There is a fat containing right groin hernia. Skeletal structures: The skeletal structures are osteopenic. There is mild lumbosacral spondylosis. No lytic or blastic lesions are seen. IMPRESSION: 1. There is intra and extrahepatic biliary ductal dilatation with evidence of acute cholecystitis. This is likely due to choledocholithiasis. Clinical and laboratory correlation will be required and surgical evaluation is advised. 2. There is mild infiltration seen around loops of jejunum in the mid abdomen. The appearance suggests a nonspecific enteritis and clinical correlation will be required. 3. Additional findings as above. ACT 112: Negative or not required by law. Electronically signed by: Jethro Conroy M.D. 01/23/2022 10:35 AM Chest X-Ray 01/23/22 09:14 XR chest 1V portable HISTORY: 56 years-old Female epigastric pain . Acute epigastric abdominal pain COMPARISON: None TECHNIQUE: Portable AP view of the chest FINDINGS: Cardiomediastinal and hilar silhouettes are within normal limits. No pneumothorax, pleural effusion, airspace consolidation or overt pulmonary edema. Degenerative changes of the shoulders and spine. Surgical clips of the upper abdomen. IMPRESSION: No acute process. ACT 112: Negative or not required by law. The above report was generated using voice recognition software. It may contain grammatical, syntax or spelling errors. Electronically signed by: Alfred Rodriguez M.D. 01/23/2022 9:57 AM Code Status & VTE Plan VTE Prophylaxis Plan VTE Prophylaxis will be ordered: Yes
--- NOTE | 2022-01-23 13:35 | Anesthesiology Consultation ---
Date of Service January 23, 2022 Assessment & Plan (1) Encounter for pre-operative examination: Chart Review Chart Review: data entry processor initiated History Surgery Operation Date: 01/23/22 10:30 Proposed Procedures p Endoscopic Retrograde Cholangiopancreato - Ami Biggs MD Operation Date: 01/24/22 12:30 Proposed Procedures p Laparoscopic Cholecystectomy - Baljit Hodge MD Height/Weight Height: 5 ft 2 in Weight: 74.3 kg Allergies Allergy/AdvReac Type Severity Reaction Status Date / Time acetaminophen [From Percocet] AdvReac Unknown THROAT Verified 10/20/21 10:17 SWELLING hydrocodone [From Vicodin] AdvReac Unknown THROAT Verified 10/20/21 10:17 SWELLING oxycodone [From Percocet] AdvReac Unknown THROAT Verified 10/20/21 10:17 SWELLING Penicillins AdvReac Unknown STOMACH Verified 10/20/21 10:17 PROBLEMS Sulfa (Sulfonamide AdvReac Unknown STOMACH Verified 10/20/21 10:17 Antibiotics) PROBLEMS Medications Home Medications Medication Instructions Recorded Confirmed Last Taken aspirin 81 mg tablet,delayed 81 mg PO DAILY 11/25/19 01/23/22 2 Weeks Ago release ~11/26/19 hydrochlorothiazide 25 mg tablet 25 mg PO QAM 11/25/19 01/23/22 12/06/19 multivitamin 1 tab PO DAILY 06/12/21 01/23/22 Unknown omeprazole 20 mg capsule,delayed 20 mg PO DAILY 06/12/21 01/23/22 Unknown release potassium chloride 10 mEq 10 meq PO BID 10/20/21 01/23/22 Unknown capsule,extended release ferrous sulfate 325 mg (65 mg 325 mg PO DAILY 01/23/22 01/23/22 Unknown iron) tablet (Iron (ferrous sulfate)) metformin 500 mg tablet 1,000 mg PO BID 01/23/22 01/23/22 Unknown Past Medical History Medical History Acid reflux Bilateral primary osteoarthritis of knee Diabetes mellitus GERD (gastroesophageal reflux disease) HLD (hyperlipidemia) HTN (hypertension) Obesity Tear of medial meniscus of right knee Tear of peroneal tendon of right foot Past Family History Family History Mother Family history of diabetes mellitus Brother Family history of diabetes mellitus Brother Family history of diabetes mellitus Sister Family history of diabetes mellitus Sister Family history of diabetes mellitus Past Surgical History Surgical History History of ankle surgery R ANKLE - NO HARDWARE History of arthroscopy of left knee History of gastric surgery GASTRIC SLEEVE 3 YR AGO History of hysterectomy PONV (postoperative nausea and vomiting) S/P right knee arthroscopy Social History Smoking Status: Never smoker Hx Alcohol Use: No substance use type: does not use Physical Exam Vital Signs Last Vital Signs Temp 98.2 F 01/23/22 09:01 Pulse 99 H 01/23/22 10:05 Resp 18 01/23/22 10:05 BP 155/82 H 01/23/22 10:05 Pulse Ox 97 01/23/22 10:05 O2 Del Method 01/23/22 10:05 Testing Laboratory Results 01/23/22 09:22 01/23/22 09:22 Urine Color Dark Yellow 01/23/22 12:10 Urine Appearance Clear (Clear) 01/23/22 12:10 Urine pH 7.0 (4.5-7.5) 01/23/22 12:10 Ur Specific [place] > 1.045 (1.000-1.030) H 01/23/22 12:10 Urine Protein Negative (Negative) 01/23/22 12:10 Urine Glucose (UA) 1+ (Negative) H 01/23/22 12:10 Urine Ketones Negative (Negative) 01/23/22 12:10 Urine Nitrite Negative (Negative) 01/23/22 12:10 Ur Leukocyte Esterase Negative (Negative) 01/23/22 12:10 Electrocardiogram Date: 01/23/22 Sinus tachycardia Possible Left atrial enlargement Anteroseptal infarct (cited on or before 27-NOV-2019) Abnormal ECG When compared with ECG of 27-NOV-2019 09:36, Vent. rate has increased BY 44 BPM Nonspecific T wave abnormality, worse in Lateral leads Chest X-Ray Date: 01/23/22 Findings: + NAD
[2022-01-23] MEDS ORDERED: CARBOHYDRATES FOR HYPOGLYCEMIA PO PRN (14:34)
[2022-01-23] MEDS ORDERED: GLUCOSE 40% GEL 15 GM TUBE PO PRN (14:34)
[2022-01-23] MEDS ORDERED: DEXTROSE 50% 50 ML SYRINGE IV PRN (14:34)
[2022-01-23] MEDS ORDERED: GLUCOSE 10 TAB/TUBE PO PRN (14:34)
[2022-01-23] MEDS ORDERED: ONDANSETRON INJ 2 MG/ML 2 ML VIAL IV PRN ×2 (14:34→15:12)
[2022-01-23] MEDS ORDERED: GLUCAGON FOR INJ 1 MG VIAL SQ PRN (14:34)
[2022-01-23] MEDS ORDERED: FLUARIX QUADRIVALENT 0.5 ML SYR IM ONE (14:59)
[2022-01-23] MEDS ORDERED: ONDANSETRON INJ 2 MG/ML 2 ML VIAL ONE (15:00)
[2022-01-23] MEDS ORDERED: LIDOCAINE 2% 20 MG/ML 5 ML SYR IV ONE (15:00)
[2022-01-23] MEDS ORDERED: ROCURONIUM BROMIDE 10 MG/ML 5 ML VIAL IV ONE ×4 (15:00→17:25)
[2022-01-23] MEDS ORDERED: DEXAMETHASONE SOD INJ 4 MG/ML VIAL ONE (15:00)
[2022-01-23] MEDS ORDERED: PROPOFOL IV EMULSION 10 MG/ML 20 ML VIAL IV ONE (15:00)
[2022-01-23] MEDS ORDERED: fentaNYL citrate 100 MCG/2 ML VIAL ONE ×2 (15:01→16:51)
[2022-01-23] MEDS ORDERED: MIDAZOLAM HCL 1 MG/ML 2ML VIAL ONE (15:01)
[2022-01-23] MEDS ORDERED: fentaNYL citrate 100 MCG/2 ML VIAL IV PRN (15:12)
[2022-01-23] MEDS ORDERED: ePHEDrine sulfate 50 MG/ML AMP IV PRN (15:12)
[2022-01-23] MEDS ORDERED: ATROPINE SULFATE 0.1 MG/ML 10ML SYR IV PRN (15:12)
[2022-01-23] MEDS ORDERED: PIPERACILLIN/TAZOBACTAM 3.375 GM in DEXTROSE 5% 100 ML IV ONE ×2 (15:30→19:45)
[2022-01-23] MEDS ORDERED: SUGAMMADEX SODIUM 200 MG/2 ML VIAL IV ONE ×2 (15:51→17:53)
--- NOTE | 2022-01-23 16:22 | Operative Report ---
Post Operative Report Pre & Post Diagnosis Operation Date: 01/23/22 10:30 Pre-Op Diagnosis: Cholangitis Post-Op Diagnosis: Stone and cholangitis Operation Date: 01/24/22 12:30 <No data on this case meets the specified criteria> I identified the patient and participated in the time-out.: Yes Procedure Operation Date: 01/23/22 10:30 Actual Procedures p ERCP with stent placement - Ami Biggs MD Operation Date: 01/24/22 12:30 <No data on this case meets the specified criteria> Surgeon Ami Biggs MD Securities Counselor None Estimated Blood Loss 0 Findings See Below (Choledocholithiasis, CBD stent placed) Specimens None Description of Procedure ERCP I attest to the content of the Intraoperative Record and any orders documented therein. Any exceptions are noted below.
--- NOTE | 2022-01-23 16:32 | GI REPORT ---
Patient Name: Reshma Newberry Procedure Date: 01/23/2022 3:06 PM Date of : 1965 Admit Type: Inpatient Age: 56 Gender: Female Attending MD: Ami Biggs MD, Procedure: ERCP Providers: Ami Biggs MD Referring MD: Hoang Tinajero Md Indications: For therapy of bile duct stone(s), For therapy of ascending cholangitis Medicines: General Anesthesia Complications: No immediate complications. Estimated Blood Loss: Estimated blood loss: none. Procedure: Pre-Anesthesia Assessment: - Prior to the procedure, a History and Physical was performed, and patient medications, allergies and sensitivities were reviewed. The patient's tolerance of previous anesthesia was reviewed. - The risks and benefits of the procedure and the sedation options and risks were discussed with the patient. All questions were answered and informed consent was obtained. - Patient identification and proposed procedure were verified prior to the procedure by the physician and the nurse. The procedure was verified in the procedure room. - Pre-procedure physical examination revealed no contraindications to sedation. After obtaining informed consent, the scope was passed under direct vision. Throughout the procedure, the patient's blood pressure, pulse, and oxygen saturations were monitored continuously. The Duodenoscope was introduced through the mouth, and advanced to the duodenum and used to inject contrast into the bile duct. The ERCP was accomplished without difficulty. The patient tolerated the procedure well. Findings: The marketing content specialist film was normal. The esophagus was successfully intubated under direct vision. The scope was advanced to a normal major papilla in the descending duodenum without detailed examination of the pharynx, larynx and associated structures, and upper GI tract. The upper GI tract was grossly normal. The major papilla was located entirely within a diverticulum. A 0.025 inch x 270 cm angled Visiglide wire was passed into the biliary tree. The Fusion OMNI sphincterotome was passed over the guidewire and the bile duct was then deeply cannulated. Contrast was injected. I personally interpreted the bile duct images. Ductal flow of contrast was adequate. Image quality was adequate. Contrast extended to the main bile duct. Opacification of the entire biliary tree was successful. The maximum diameter of the ducts was 15 mm. The lower third of the main bile duct contained one stone, which was 12 mm in diameter. Biliary sphincterotomy was made with a monofilament traction (standard) sphincterotome using ERBE electrocautery. There was no post-sphincterotomy bleeding. Dilation of the common bile duct with a 10 mm balloon dilator was successful. The biliary tree was swept with a 15 mm balloon and basket starting at the bifurcation. Sludge was swept from the duct. Many stones were removed. No stones remained. Pus was swept from the duct. One 10 Fr by 4 cm plastic biliary stent with a single external pigtail and a single internal pigtail was placed into the common bile duct. Bile flowed through the stent. The stent was in good position. Indomethacin 100 mg was given via suppository to decrease the risk of post-ERCP pancreatitis (PEP). Impression: - Choledocholithiasis was found. Complete removal was accomplished by biliary sphincterotomy and balloon extraction. - One plastic biliary stent was placed into the common bile duct. Recommendation: - Repeat ERCP in 2 months to remove stent. - Proceed with cholecystectomy. Ami Biggs MD 01/23/2022 4:31:22 PM This report has been signed electronically. Note Initiated On: 01/23/2022 3:06 PM Number of Addenda: 0 I attest to the content of the Intraoperative Record and orders documented therein, exceptions below {[id number]}
[2022-01-23] MEDS ORDERED: BUPIVACAINE/EPINEPHRINE 0.25% 1:200,000 30 ML VIAL ONE (16:39)
--- NOTE | 2022-01-23 17:08 | Fluoroscopy Report ---
[place] ERCP biliary ductal CLINICAL HISTORY: for ERCP COMPARISON STUDY: CT of the abdomen and pelvis performed earlier today. FLUOROSCOPY TIME: 1 minute and 17 seconds. FLUOROSCOPIC IMAGES: 17 FINDINGS: Fluoroscopy was provided during ERCP. Common bile duct was cannulated. Filling defects with in the common bile duct suggest choledocholithiasis. Balloon sweep through the common bile duct was p erformed. Biliary stent was placed. Positioning is appropriate. Partial opacification of the gallblad charles is noted. IMPRESSION: Fluoroscopy provided ERCP with placement of a biliary stent. ACT 112: Negative or not required by law. Electronically signed by: Fredrick Herr M.D. 01/23/2022 5:06 PM
[2022-01-23] MEDS ORDERED: GLYCOPYRROLATE 0.2 MG/ML VIAL ONE (17:26)
[2022-01-23] MEDS ORDERED: NEOSTIGMINE METHYLSULFATE 1 MG/ML 10ML VIAL ONE (17:26)
[2022-01-23] MEDS ORDERED: KETOROLAC 30 MG/ML VIAL ONE (17:34)
--- NOTE | 2022-01-23 17:58 | Post Operative Brief Note ---
Immediate Post Op Note v1 Date of Surgery January 23, 2022 Pre & Post Diagnosis Operation Date: 01/23/22 10:30 Pre-Op Diagnosis: 1) Choledocholithiasis with acute cholecystitis: Post-Op Diagnosis: 1) Choledocholithiasis with acute cholecystitis: Operation Date: 01/24/22 12:30 <No data on this case meets the specified criteria> I identified the patient and participated in the time-out.: Yes Procedure Operation Date: 01/23/22 10:30 Actual Procedures p Endoscopic Retrograde Cholangiopancreatography with stent placement(Not Applicable) - Ami Biggs MD s Laparoscopic Cholecystectomy(Not Applicable) - Baljit Hodge MD Operation Date: 01/24/22 12:30 <No data on this case meets the specified criteria> Surgeon Baljit Hodge MD Traffic Engineering Director None Estimated Blood Loss 5 Findings Consistent with Post-Op Diagnosis
--- NOTE | 2022-01-23 18:02 | Operative Report ---
Post Operative Report Pre & Post Diagnosis Operation Date: 01/23/22 10:30 Pre-Op Diagnosis: 1) Choledocholithiasis with acute cholecystitis: Post-Op Diagnosis: 1) Choledocholithiasis with acute cholecystitis: Operation Date: 01/24/22 12:30 <No data on this case meets the specified criteria> I identified the patient and participated in the time-out.: Yes Procedure Operation Date: 01/23/22 10:30 Actual Procedures p Endoscopic Retrograde Cholangiopancreatography with stent placement(Not Applicable) - Ami Biggs MD s Laparoscopic Cholecystectomy(Not Applicable) - Baljit Hodge MD Operation Date: 01/24/22 12:30 <No data on this case meets the specified criteria> Surgeon Baljit Hodge MD Shorthand Reporter None Estimated Blood Loss 5 Findings Consistent with Post-Op Diagnosis Acute cholecystitis with significant inflammatory change of the gallbladder. Details of the ERCP are dictated in a separate op note by Dr. Augusto Chavarria Specimens Gallbladder Drains None Anesthesia Type General Complications No immediate complications Description of Procedure The patient was taken to the operating room, and placed supine on the operating table. A timeout was performed, perioperative antibiotics were administered, SCD boots were placed. After adequate anesthesia and analgesia was obtained, the abdomen was prepped and draped in the normal sterile fashion. Local anesthetic was injected into and around the proposed incision sites. An incision was made with a 15 blade scalpel in the supraumbilical region and carried down to the level of the fascia. The fascia was grasped with a trach hook, and a varies needle was used to enter the abdominal cavity. The abdomen was insufflated to a pressure of 15 mmHg, and a 11 mm trocar was placed in this location. A 10 mm, 30 degree laparoscope was placed into the abdominal cavity, and the abdomen was surveyed. Two 5 mm trochars were placed along the right costal margin, and one 5 mm trocar was placed in the subxiphoid region under direct visualization. The gallbladder was quite distended and taut, and there was significant inflammatory change around it. The gallbladder was drained with an 18-gauge aspiration needle. The gallbladder was grasped and retracted cephalad and laterally, exposing the triangle of Calot. Dissection began in the triangle with a combination of blunt dissection with the [place] dissector, and judicious use of the hook cautery. The cystic duct and cystic artery were dissected free circumferentially, and a critical view of safety was obtained. The cystic duct was quite inflamed and thickened, therefore the subxiphoid port was changed to a 11 mm port. The cystic duct and cystic artery were clipped and transected, and the gallbladder was removed from the gallbladder fossa with the hook cautery. The camera was switched to the subxiphoid port, the gallbladder was placed in an Endo Catch bag, and removed via the supraumbilical port site. The camera was switched back to the umbilical port, and the abdomen was surveyed again. Hemostasis was checked and attended, and was excellent. The abdomen was copiously irrigated and suctioned free. Again hemostasis was checked and was excellent. All trochars were removed under direct visualization. The abdomen was desufflated. The fascia in the 11 mm port site was closed with a 0 Vicryl suture. The skin was closed with a running 4-0 Monocryl subcuticular stitch. Dermabond was applied. The patient tolerated the procedure without complication, and was transferred in stable condition to the PACU. All instrument, needle, and sponge counts were correct at the end of the case. I attest to the content of the Intraoperative Record and any orders documented therein. Any exceptions are noted below.
[2022-01-23] MEDS ORDERED: PROMETHAZINE HCL 12.5 MG in SODIUM CHLORIDE 0.9% 50 ML IV PRN (18:25)
[2022-01-23] MEDS ORDERED: PROMETHAZINE HCL INJ 25 MG/ML 1 ML VIAL ONE (18:26)
[2022-01-23] MEDS ORDERED: SODIUM CHLORIDE 0.9% 50 ML BAG ONE (18:27)
--- NOTE | 2022-01-23 18:41 | Anesthesiology Progress Note ---
Date of Service January 23, 2022 Anesthesia Post Procedure Vital Signs Vital Signs: Temp Pulse Pulse Resp BP BP Pulse Ox 01/23/22 18:30 74 12 149/68 H 94 01/23/22 18:20 72 13 153/66 H 98 01/23/22 18:10 78 15 175/74 H 100 01/23/22 18:01 37.0 C 74 16 172/82 H 99 01/23/22 15:05 39 C H 109 H 18 119/75 96 01/23/22 14:34 01/23/22 14:34 38.1 C H 106 H 18 131/73 94 01/23/22 13:30 104 H 22 92 01/23/22 13:30 136/76 01/23/22 13:20 107 H 21 95 01/23/22 13:10 107 H 23 94 01/23/22 13:00 112 H 22 01/23/22 13:00 154/82 H 01/23/22 12:50 108 H 20 94 01/23/22 12:40 108 H 21 94 01/23/22 12:30 109 H 24 95 01/23/22 12:30 155/84 H 01/23/22 12:20 114 H 24 94 01/23/22 12:14 115 H 21 94 01/23/22 12:14 143/78 H 01/23/22 12:13 116 H 20 01/23/22 12:00 117 H 24 01/23/22 11:50 114 H 18 01/23/22 11:40 115 H 24 96 01/23/22 11:30 114 H 24 95 01/23/22 11:20 115 H 17 01/23/22 11:10 116 H 19 01/23/22 11:00 114 H 19 96 01/23/22 10:50 113 H 23 92 01/23/22 10:40 109 H 20 97 01/23/22 10:30 105 H 18 98 01/23/22 10:27 110 H 23 01/23/22 10:10 95 H 26 H 97 01/23/22 10:03 97 H 20 95 01/23/22 10:03 155/82 H 01/23/22 10:00 95 H 24 95 01/23/22 09:50 100 H 20 97 01/23/22 09:40 98 H 17 94 01/23/22 09:39 96 H 12 95 01/23/22 10:05 99 H 18 155/82 H 97 01/23/22 09:26 92 H 99 01/23/22 09:10 92 H 18 158/116 H 98 01/23/22 09:01 36.8 C 98 H 16 127/84 97 O2 Del Method O2 Flow Rate 01/23/22 18:30 Room Air 01/23/22 18:20 Room Air 01/23/22 18:10 Oxymask 5 01/23/22 18:01 Oxymask 5 01/23/22 15:05 Room Air 01/23/22 14:34 Room Air 01/23/22 14:34 Room Air 01/23/22 13:30 01/23/22 13:30 01/23/22 13:20 01/23/22 13:10 01/23/22 13:00 01/23/22 13:00 01/23/22 12:50 01/23/22 12:40 01/23/22 12:30 01/23/22 12:30 01/23/22 12:20 01/23/22 12:14 01/23/22 12:14 01/23/22 12:13 01/23/22 12:00 01/23/22 11:50 01/23/22 11:40 01/23/22 11:30 01/23/22 11:20 01/23/22 11:10 01/23/22 11:00 01/23/22 10:50 01/23/22 10:40 01/23/22 10:30 01/23/22 10:27 01/23/22 10:10 01/23/22 10:03 01/23/22 10:03 01/23/22 10:00 01/23/22 09:50 01/23/22 09:40 01/23/22 09:39 01/23/22 10:05 Room Air 01/23/22 09:26 Room Air 01/23/22 09:10 01/23/22 09:01 Room Air Pain Intensity Upper Abdomen: Pain Intensity: 9 Transfer of Care Handoff Completed per policy Notes Mental Status: alert / awake / arousable Patient Amnestic to Procedure: Yes Nausea / Vomiting: adequately controlled Pain: adequately controlled Airway Patency, RR, SpO2: stable & adequate BP & HR: stable & adequate Hydration State: stable & adequate Anesthetic Complications: no major complications apparent
[2022-01-23] MEDS ORDERED: MoRPHine SULFATE 2 MG/ML CARP IV PRN (18:58)
[2022-01-23] MEDS ORDERED: oxyCODONE/ACETAMINOPHEN 5mg/325mg TAB PO PRN (18:58)
[2022-01-23] MEDS ORDERED: KETOROLAC 30 MG/ML VIAL IV PRN (18:58)
[2022-01-23] MEDS: INSULIN ASPART PER UNIT SC SCH ×2 (19:41→20:30)
[2022-01-23] MEDS: POTASSIUM CHLORIDE / WTR 10 MEQ/100 ML PLCT IV SCH ×4 (20:15→23:29)
[2022-01-23] MEDS: SODIUM CHLORIDE 0.9% 1000ML 1,000 ML IV SCH (20:15)
[2022-01-23] MEDS ORDERED: PIPERACILLIN/TAZOBACTAM 3.375 GM in DEXTROSE 5% 100 ML IV SCH (21:00)
[2022-01-24] MEDS: SODIUM CHLORIDE 0.9% 1000ML 1,000 ML IV SCH ×2 (00:45→07:32)
[2022-01-24] MEDS: PIPERACILLIN/TAZOBACTAM 3.375 GM in DEXTROSE 5% 100 ML IV SCH ×3 (00:45→17:00)
[2022-01-24 07:58] LABS: Basophils # (auto) 0.01 K/uL (0-0.2); Basophils % (auto) 0.1 %; Hematocrit (blood only) 36.7 % (34.1-44.9); Hemoglobin 12.4 g/dl (12.0-16.0); Immature Granulocytes # (auto) 0.02 K/uL (0.00-0.02); Immature Granulocytes % (auto) 0.3 %; Lymphocytes # (auto) 0.81 K/uL (1.2-3.4); Lymphocytes % (auto) 10.5 %; Mean Corpuscular Hemoglobin 28.1 pg (25.0-34.0); Mean Corpuscular Hgb Conc 33.8 g/dL (32.0-36.0); Mean Corpuscular Volume 83.2 fL (80.0-100.0); Mean Platelet Volume 10.9 fL (9.4-12.3); Monocytes # (auto) 0.56 K/uL (0.24-0.82); Monocytes % (auto) 7.3 %; Neutrophils % (auto) 81.8 %; Platelet Count 258 K/uL (130-400); RDW Coefficient of Variation 13.8 % (11.5-14.5); RDW Standard Deviation 42.1 fL (36.4-46.3); Red Blood Count 4.41 M/uL (3.93-5.22)
[2022-01-24] MEDS ORDERED: SODIUM CHLORIDE 0.9% 1000ML 1,000 ML IV SCH (08:00)
[2022-01-24 08:22] LABS: Albumin Globulin Ratio 1.2 (0.9-2); Albumin Level 3.2 gm/dl (3.4-5.0); BUN Creatinine Ratio 14.3 (10-20); Bilirubin,Total 2.6 mg/dl (0.2-1.0); Calcium 7.9 mg/dl (8.5-10.1); Creatinine Clr Calc Pharmacy 106.8 ml/min; Est GFR (African American) 119.1 ml/min; Est GFR (Non-African American) 102.8 ml/min; Globulin 2.6 gm/dl (2.5-4.0); Potassium 3.2 mmol/L (3.5-5.1); Total Protein 5.8 gm/dl (6.0-8.3)
[2022-01-24] MEDS: INSULIN ASPART PER UNIT SC SCH ×3 (08:35→17:00)
[2022-01-24] MEDS ORDERED: POTASSIUM CHLORIDE 10 MEQ TABCR PO SCH (09:00)
[2022-01-24] MEDS ORDERED: FERROUS SULFATE 325 MG TAB PO SCH (09:00)
[2022-01-24] MEDS ORDERED: MULTIVITAMIN TAB PO SCH (09:00)
[2022-01-24] MEDS ORDERED: PANTOprazole 40 MG TAB PO SCH (09:00)
[2022-01-24] MEDS ORDERED: hydroCHLOROthiazide 25 MG TAB PO SCH (09:00)
--- NOTE | 2022-01-24 10:04 | Gastroenterology Progress Note ---
Date of Service January 24, 2022 Assessment & Plan (1) Choledocholithiasis with acute cholecystitis: Plan: Pt is a 56 yo female w c/o fever, chills, postprandial upper abd pain, n/v, workup showed elevated LFT and CT w signs of intra/extrahepatic biliary ductal and CBD dilation likely due to choledocholithiasis w cholecystitis present. Patient underwent ERCP with choledocholithiasis removal via balloon extraction and biliary sphincterectomy, biliary stent placement, then proceeded with laparoscopic cholecystectomy yesterday. She is doing better clinically. LFTs trending down, afebrile overnight, tolerating clear liquids diet this morning. - Advance diet as tolerated - Avoid ASA or NSAIDs at least 5 days after sphincterectomy - Trend LFTs - Antibiotics coverage for 7 days - GI to sign off; pls recall prn Admission and Anticipated Discharge Date Admission Date: January 23, 2022 Supervising Physician Co-Signing Physician Notes I have seen and examined the patient with GURPREET Coronado whose note reflects our findings and plan. Subjective Patient doing well, denies any fevers or chills. No nausea or vomiting. Seen eating clear liquid diet this morning. Having some mild upper abdominal discomfort mostly around surgical site. She is not passing flatus nor having bowel movements yet this morning. Review of Systems Review of Systems: All systems reviewed & are unremarkable except as noted in HPI & below Physical Exam Constitutional: WD/WN, vitals as above well groomed, cooperative and comfortable Eyes: PERRLA, icteric sclera ENMT: external ear and nose normal, oropharynx normal Respiratory: normal respiratory effort, lungs clear to auscultation Cardiovascular: RRR, no murmur, no edema Gastrointestinal (Abdomen): Soft, tender to palpation mostly on surgical sites, bowel sounds hypoactive. Skin: no rashes, warm and dry no jaundice Psychiatric: A+Ox3, euthymic affect Lymphatic: no lymphedema Results & Data ([facility]) Vital Signs (Past 12 Hours) Vital Signs Temp Pulse Pulse Resp BP Pulse Ox O2 Del Method 01/24/22 07:35 Room Air 01/24/22 09:00 20 01/24/22 08:03 36.6 C 55 L 18 135/80 96 Room Air 01/24/22 07:00 56 L 01/24/22 05:00 36.4 C L 59 L 16 106/70 97 Room Air 01/24/22 01:28 36.7 C 63 16 116/71 97 Room Air 01/23/22 23:20 65
[2022-01-24] MEDS ORDERED: ACETAMINOPHEN 325 MG TAB PO PRN (12:23)
[2022-01-24] MEDS ORDERED: traMADol HCL 50 MG TABLET PO PRN (12:24)
--- NOTE | 2022-01-24 12:28 | Surgery Progress Note ---
Date of Service January 24, 2022 Assessment & Plan (1) Choledocholithiasis with acute cholecystitis: (2) Transaminitis: (3) Elevated bilirubin: Plan POD # 1 s/p ERCP with sphincterotomy and common bile duct stent placement and laparoscopic cholecystectomy -avss - postop pain minimal and controlled - no n,v - tolerating diet - t. bili and lfts still elevated but trending down. Plan: doing well from surgical standpoint advance to low fat diet continue pain management but will stop Toradol and add tramadol as needed encouraged ambulating hallway will order incentive spirometry discussed with Dr. Lawson, if does well with diet advancement and ambulating okay from surgical standpoint to be discharged with close outpatient labs in 5 days. discharge instructions reviewed rx for Tramadol prn pain sent to pharmacy f/u surgery in [address] Hodge who agrees with above. Admission and Anticipated Discharge Date Admission Date: January 23, 2022 Subjective Patient feeling much better today No nausea no vomiting Postop abdominal pain mild has not required much pain medication No chest pain or shortness of breath Urinating without difficulty Preoperative pain resolved Physical Exam Constitutional: WD/WN, vitals as above no acute distress and not ill appearing Respiratory: normal respiratory effort, lungs clear to auscultation Cardiovascular: RRR, no murmur, no edema Gastrointestinal (Abdomen): Inspection/Auscultation: abdomen normal to inspection and + abdominal surgical incision (Clean, dry, intact with Dermabond); abdomen not distended Percussion/Palpation: + abdomen tender (Mild at incision sites) and abdomen soft; no guarding, abdomen not rigid and abdomen not firm Skin: no rashes, warm and dry + jaundice (mild scleral icterus) Psychiatric: A+Ox3, euthymic affect Results & Data ([facility]) Vital Signs (Past 12 Hours) Vital Signs Temp Pulse Pulse Resp BP Pulse Ox O2 Del Method 01/24/22 11:18 36.9 C 61 18 129/82 97 Room Air 01/24/22 09:33 22 01/24/22 07:35 Room Air 01/24/22 09:00 20 01/24/22 08:03 36.6 C 55 L 18 135/80 96 Room Air 01/24/22 07:00 56 L 01/24/22 05:00 36.4 C L 59 L 16 106/70 97 Room Air 01/24/22 01:28 36.7 C 63 16 116/71 97 Room Air Laboratory Results 01/24/22 01/24/22 01/24/22 Range/Units 11:38 07:49 07:28 WBC (4.8-10.8) K/ul RBC (3.93-5.22) M/uL Hgb (12.0-16.0) g/dl Hct (34.1-44.9) % MCV (80.0-100.0) fL MCH (25.0-34.0) pg MCHC (32.0-36.0) g/dL RDW Std Deviation (36.4-46.3) fL RDW Coeff of Marisel (11.5-14.5) % Plt Count (130-400) K/uL MPV (9.4-12.3) fL Immature Gran % (Auto) % Neut % (Auto) % Lymph % (Auto) % Arthur % (Auto) % Eos % (Auto) % Baso % (Auto) % Neut # (Auto) (1.4-6.5) K/uL Lymph # (Auto) (1.2-3.4) K/uL Arthur # (Auto) (0.24-0.82) K/uL Eos # (Auto) (0-0.50) K/uL Baso # (Auto) (0-0.2) K/uL Immature Gran # (Auto) (0.00-0.02) K/uL Sodium 137 (136-145) mmol/L Potassium 3.2 L (3.5-5.1) mmol/L Chloride 100 (98-107) mmol/L Carbon Dioxide 28 (21-32) mmol/L Anion Gap 9 (3-11) BUN 8 (6-23) mg/dl Creatinine 0.56 L (0.6-1.2) mg/dl Est Cr Clr Drug Dosing 106.8 ml/min Est GFR ( Amer) 119.1 ml/min Est GFR (Non-Af Amer) 102.8 ml/min BUN/Creatinine Ratio 14.3 (10-20) Glucose 176 H (70-99(Fasting)) mg/dl POC Glucose 204 H 163 H (70-99) mg/dl Calcium 7.9 L (8.5-10.1) mg/dl Total Bilirubin 2.6 H (0.2-1.0) mg/dl AST 98 H (13-39) U/L ALT 100 H (7-52) U/L Alkaline Phosphatase 680 H (34-104) U/L Total Protein 5.8 L D (6.0-8.3) gm/dl Albumin 3.2 L (3.4-5.0) gm/dl Globulin 2.6 (2.5-4.0) gm/dl Albumin/Globulin Ratio 1.2 (0.9-2) Urine Color Urine Appearance (Clear) Urine pH (4.5-7.5) Ur Specific [place] (1.000-1.030) Urine Protein (Negative) Urine Glucose (UA) (Negative) Urine Ketones (Negative) Urine Blood (Negative) Urine Nitrite (Negative) Urine Bilirubin (Negative) Urine Urobilinogen (Negative) Ur Leukocyte Esterase (Negative) 01/24/22 01/23/22 01/23/22 Range/Units 07:28 20:27 18:13 WBC 7.70 (4.8-10.8) K/ul RBC 4.41 (3.93-5.22) M/uL Hgb 12.4 (12.0-16.0) g/dl Hct 36.7 (34.1-44.9) % MCV 83.2 (80.0-100.0) fL MCH 28.1 (25.0-34.0) pg MCHC 33.8 (32.0-36.0) g/dL RDW Std Deviation 42.1 (36.4-46.3) fL RDW Coeff of Marisel 13.8 (11.5-14.5) % Plt Count 258 (130-400) K/uL MPV 10.9 (9.4-12.3) fL Immature Gran % (Auto) 0.3 % Neut % (Auto) 81.8 % Lymph % (Auto) 10.5 % Arthur % (Auto) 7.3 % Eos % (Auto) 0.0 % Baso % (Auto) 0.1 % Neut # (Auto) 6.30 (1.4-6.5) K/uL Lymph # (Auto) 0.81 L (1.2-3.4) K/uL Arthur # (Auto) 0.56 (0.24-0.82) K/uL Eos # (Auto) 0.00 (0-0.50) K/uL Baso # (Auto) 0.01 (0-0.2) K/uL Immature Gran # (Auto) 0.02 (0.00-0.02) K/uL Sodium (136-145) mmol/L Potassium (3.5-5.1) mmol/L Chloride (98-107) mmol/L Carbon Dioxide (21-32) mmol/L Anion Gap (3-11) BUN (6-23) mg/dl Creatinine (0.6-1.2) mg/dl Est Cr Clr Drug Dosing ml/min Est GFR ( Amer) ml/min Est GFR (Non-Af Amer) ml/min BUN/Creatinine Ratio (10-20) Glucose (70-99(Fasting)) mg/dl POC Glucose 231 H 218 H (70-99) mg/dl Calcium (8.5-10.1) mg/dl Total Bilirubin (0.2-1.0) mg/dl AST (13-39) U/L ALT (7-52) U/L Alkaline Phosphatase (34-104) U/L Total Protein (6.0-8.3) gm/dl Albumin (3.4-5.0) gm/dl Globulin (2.5-4.0) gm/dl Albumin/Globulin Ratio (0.9-2) Urine Color Urine Appearance (Clear) Urine pH (4.5-7.5) Ur Specific [place] (1.000-1.030) Urine Protein (Negative) Urine Glucose (UA) (Negative) Urine Ketones (Negative) Urine Blood (Negative) Urine Nitrite (Negative) Urine Bilirubin (Negative) Urine Urobilinogen (Negative) Ur Leukocyte Esterase (Negative) 01/23/22 Range/Units 12:10 WBC (4.8-10.8) K/ul RBC (3.93-5.22) M/uL Hgb (12.0-16.0) g/dl Hct (34.1-44.9) % MCV (80.0-100.0) fL MCH (25.0-34.0) pg MCHC (32.0-36.0) g/dL RDW Std Deviation (36.4-46.3) fL RDW Coeff of Marisel (11.5-14.5) % Plt Count (130-400) K/uL MPV (9.4-12.3) fL Immature Gran % (Auto) % Neut % (Auto) % Lymph % (Auto) % Arthur % (Auto) % Eos % (Auto) % Baso % (Auto) % Neut # (Auto) (1.4-6.5) K/uL Lymph # (Auto) (1.2-3.4) K/uL Arthur # (Auto) (0.24-0.82) K/uL Eos # (Auto) (0-0.50) K/uL Baso # (Auto) (0-0.2) K/uL Immature Gran # (Auto) (0.00-0.02) K/uL Sodium (136-145) mmol/L Potassium (3.5-5.1) mmol/L Chloride (98-107) mmol/L Carbon Dioxide (21-32) mmol/L Anion Gap (3-11) BUN (6-23) mg/dl Creatinine (0.6-1.2) mg/dl Est Cr Clr Drug Dosing ml/min Est GFR ( Amer) ml/min Est GFR (Non-Af Amer) ml/min BUN/Creatinine Ratio (10-20) Glucose (70-99(Fasting)) mg/dl POC Glucose (70-99) mg/dl Calcium (8.5-10.1) mg/dl Total Bilirubin (0.2-1.0) mg/dl AST (13-39) U/L ALT (7-52) U/L Alkaline Phosphatase (34-104) U/L Total Protein (6.0-8.3) gm/dl Albumin (3.4-5.0) gm/dl Globulin (2.5-4.0) gm/dl Albumin/Globulin Ratio (0.9-2) Urine Color Dark Yellow Urine Appearance Clear (Clear) Urine pH 7.0 (4.5-7.5) Ur Specific [place] > 1.045 H (1.000-1.030) Urine Protein Negative (Negative) Urine Glucose (UA) 1+ H (Negative) Urine Ketones Negative (Negative) Urine Blood Negative (Negative) Urine Nitrite Negative (Negative) Urine Bilirubin 1+ H (Negative) Urine Urobilinogen Positive H (Negative) Ur Leukocyte Esterase Negative (Negative)
--- NOTE | 2022-01-24 13:36 | Hospitalist Progress Note ---
Date of Service January 24, 2022 Assessment & Plan (1) Choledocholithiasis with acute cholecystitis: (2) Elevated bilirubin: (3) Transaminitis: (4) Diabetes mellitus: (5) HTN (hypertension): (6) Mixed hyperlipidemia: (7) GERD (gastroesophageal reflux disease): Plan Acute cholecystitis with Choledocholithiasis - 01/23: p Endoscopic Retrograde Cholangiopancreatography with stent placement(Not Applicable) - Ami Biggs MD s Laparoscopic Cholecystectomy(Not Applicable) - Baljit Hodge MD - elevated liver enzymes and bilirubin improving - discharge to home later if cleared by Gen Surg - Augmentin BID x 7 days PRN Tramadol - ff up with GI and Gen Surg in 1-2 weeks DM II: -- resume Metformin in 2 days as patient received IV contrast 01/23 HTN with hx of hypoK+: BP improved K replaced GERD/iron def anemia: -continue home meds plan of care discussed with patient in detail and at length all questions answered she is understanding, agreeable, comfortable with the plan of care Admission and Anticipated Discharge Date Admission Date: January 23, 2022 Subjective ff up for acute cholecystitis, choledocholithiasis, etc seen resting in bed, comfortable in good spirits states she feels much better overall abdominal pain resolved, just feeling somewhat bloated no nausea tolerating clear liquid diet well no chest pain, dyspnea, palpitations, dizziness no fever/chills Review of Systems Review of Systems: all noted and negative except for above Physical Exam Physical Exam: General- oriented x 3, not in distress, speaks in sentences with no effort or accessory muscle use Eyes- anicteric Neck- no JVD Lungs- clear breath sounds bilaterally, no rales/wheezes Heart- normal rate, regular rhythm; no murmurs Abdomen- normal bowel sounds, nondistended, soft, nontender Extremities- no pretibial edema, no calf tenderness Neuro- alert, oriented x 3; no gross focal neurologic deficits Skin- warm & dry Results & Data Results & Data ([facility]) Vital Signs (Past 12 Hours) Vital Signs Temp Pulse Pulse Resp BP Pulse Ox O2 Del Method 01/24/22 11:18 36.9 C 61 18 129/82 97 Room Air 01/24/22 09:33 22 01/24/22 07:35 Room Air 01/24/22 09:00 20 01/24/22 08:03 36.6 C 55 L 18 135/80 96 Room Air 01/24/22 07:00 56 L 01/24/22 05:00 36.4 C L 59 L 16 106/70 97 Room Air all noted and reviewed including below
[2022-01-24] MEDS ORDERED: AMOXICILLIN/CLAVULANATE 875 MG TAB PO ONE (17:30)
--- NOTE | 2022-01-24 23:57 | Electrocardiogram Report ---
Test Reason : Blood Pressure : / mmHG Vent. Rate : 106 BPM Atrial Rate : 106 BPM P-R Int : 170 ms QRS Dur : 074 ms QT Int : 320 ms P-R-T Axes : 030 015 202 degrees QTc Int : 425 ms Sinus tachycardia Possible Left atrial enlargement Anteroseptal infarct (cited on or before 27-NOV-2019) T wave abnormality, consider anterolateral ischemia Abnormal ECG When compared with ECG of 27-NOV-2019 09:36, Vent. rate has increased BY 44 BPM T wave inversion now evident in Anterolateral leads Confirmed by Nmeesio Pelayo ([id number]) on 01/24/2022 11:56:43 PM Referred By: REFERRED SELF Confirmed By:Nemesio Pelayo
--- NOTE | 2022-01-25 06:55 | Electrocardiogram Report ---
Test Reason : Blood Pressure : / mmHG Vent. Rate : 051 BPM Atrial Rate : 051 BPM P-R Int : 144 ms QRS Dur : 084 ms QT Int : 468 ms P-R-T Axes : 039 102 -37 degrees QTc Int : 431 ms Sinus bradycardia Possible Right ventricular hypertrophy T wave abnormality, consider inferior ischemia T wave abnormality, consider anterolateral ischemia Abnormal ECG When compared with ECG of 23-JAN-2022 10:37, Vent. rate has decreased BY 55 BPM Confirmed by Nemesio Pelayo ([id number]) on 01/25/2022 6:55:24 AM Referred By: REFERRED SELF Confirmed By:Nemesio Pelayo
[2022-01-25] MEDS ORDERED: AMOXICILLIN/CLAVULANATE 875 MG TAB PO SCH (08:00)
--- NOTE | 2022-01-26 15:15 | Discharge Summary ---
Discharge Summary Date of Service January 26, 2022 Notes For Next Care Provider Repeat Liver Panel on ff up with PCP next week. Medication Changes From Visit New: Augmentin 875mg BID x 7 days Tramadol PRN Admission HPI Per Admitting Provider Pt is a 56 y/o F with hx of HTN, Gastric sleeve, HLD, GERD, DMII, Iron def anemia, hypoK+ came to the ER with worsening epigastric abd pain, Nausea. Per pt she has been having intermittent epigastric abd pain which usually resolved with vomiting but last few days it is worsening. Denied any fever, CP, SOB or GODDARD. Admission Exam Per Admitting Provider General:.NAD, well developed, well nourished, average body habitus HEENT:.Normocephalic and atraumatic, Normal Conjunctiva, EOMI, Sclera is non- icteric Lungs:.No signs of respiratory distress, CTA, no wheezing or crackles Heart:.Normal S1, S2, no murmur Abdominal:.diffuse TTP of the abd but more on the epigastric and RUQ, no rebound tenderness but mild guarding,ND, Soft, normal BS MSK:.mild b/l pitting edema of LE Psych:.AAOx3, normal affect Principal Dx & Hospital Course #1 = Principal Diagnosis (1) Choledocholithiasis with acute cholecystitis: (2) Elevated bilirubin: (3) Transaminitis: (4) Diabetes mellitus: (5) HTN (hypertension): (6) Mixed hyperlipidemia: (7) GERD (gastroesophageal reflux disease): Plan Acute cholecystitis with Choledocholithiasis - 01/23: p Endoscopic Retrograde Cholangiopancreatography with stent placement(Not Applicable) - Ami Whipple MD s Laparoscopic Cholecystectomy(Not Applicable) - Baljit Lazcano MD - elevated liver enzymes and bilirubin improving - discharge to home later if cleared by Gen Surg - Augmentin BID x 7 days PRN Tramadol - ff up with GI and Gen Surg in 1-2 weeks DM II: -- resume Metformin in 2 days as patient received IV contrast 01/23 HTN with hx of hypoK+: BP improved K replaced GERD/iron def anemia: -continue home meds plan of care discussed with patient in detail and at length all questions answered she is understanding, agreeable, comfortable with the plan of care Discharge Exam General- oriented x 3, not in distress, speaks in sentences with no effort or accessory muscle use Eyes- anicteric Neck- no JVD Lungs- clear breath sounds bilaterally, no rales/wheezes Heart- normal rate, regular rhythm; no murmurs Abdomen- normal bowel sounds, nondistended, soft, nontender Extremities- no pretibial edema, no calf tenderness Neuro- alert, oriented x 3; no gross focal neurologic deficits Skin- warm & dry Updated Medication List Medication Instructions Recorded Confirmed Type hydrochlorothiazide 25 mg tablet 25 mg PO QAM 11/25/19 01/23/22 History multivitamin 1 tab PO DAILY 06/12/21 01/23/22 History omeprazole 20 mg capsule,delayed 20 mg PO DAILY 06/12/21 01/23/22 History release potassium chloride 10 mEq 10 meq PO BID 10/20/21 01/23/22 History capsule,extended release ferrous sulfate 325 mg (65 mg 325 mg PO DAILY 01/23/22 01/23/22 History iron) tablet (Iron (ferrous sulfate)) amoxicillin 875 mg-potassium 1 tab PO BID #14 tabs 01/24/22 Rx clavulanate 125 mg tablet metformin 500 mg tablet 1,000 mg PO BID #30 tabs 01/24/22 01/23/22 Rx tramadol 50 mg tablet 50 mg PO Q6H PRN pain #10 tabs 01/24/22 Rx Hospital Stay Data Consultations 01/23/22 11:25 Consult Gastroenterology Routine Consult General Surgery Routine 01/23/22 11:38 ED Decision to Admit Stat Procedures Performed Operation Date: 01/23/22 10:30 Actual Procedures p Endoscopic Retrograde Cholangiopancreatography with stent placement(Not Applicable) - Ami Whipple MD s Laparoscopic Cholecystectomy(Not Applicable) - Baljit Lazcano MD Operation Date: 01/24/22 12:30 <No data on this case meets the specified criteria> Diagnostic Imagining Performed 01/23/22 09:06 CT abd pelvis IV con only Stat CT DOSE: 416.94 mGy.cm FINDINGS: Lung bases: The heart is normal in size and without pericardial effusion. The lung bases are clear. Liver: The contrast-enhanced liver is normal in size, contour, and attenuation. There is mild to moderate intrahepatic biliary ductal dilatation. The hepatic veins and portal veins are patent. Gallbladder: The gallbladder is distended. The gallbladder wall is thickened and there is mild surrounding inflammation. The common bile duct is dilated, measuring up to 1.6 cm in diameter. A filling defect within the distal common bile duct at the pancreatic head seen on image #184 likely represents choledocholithiasis. Spleen: Normal in size and attenuation. Pancreas: Unremarkable. Adrenal glands: Unremarkable. Kidneys: The contrast enhanced kidneys are normal in size and without hydronephrosis. The kidneys enhance symmetrically. Abdominal vasculature: The abdominal aorta is normal in course and caliber noting mild to moderate atherosclerotic calcification. Bowel: Stomach and bowel: There is a small hiatal hernia. There is evidence of previous gastric surgery. There is mild infiltration seen around loops of proximal jejunum in the mid abdomen on images #211 and #235. No focally thick- walled small bowel lops are identified. There is no pneumatosis intestinalis or portal venous gas. No bowel obstruction is seen. The appendix is well- visualized and normal. Peritoneum: There is no intraperitoneal free air or abdominal ascites. Lymphadenopathy: Prominent mesenteric lymph nodes are likely reactive. Pelvic viscera: The bladder is normal as visualized. The uterus is surgically absent. No adnexal lesion is seen. There is a fat containing right groin hernia. Skeletal structures: The skeletal structures are osteopenic. There is mild lumbosacral spondylosis. No lytic or blastic lesions are seen. IMPRESSION: 1. There is intra and extrahepatic biliary ductal dilatation with evidence of acute cholecystitis. This is likely due to choledocholithiasis. Clinical and laboratory correlation will be required and surgical evaluation is advised. 2. There is mild infiltration seen around loops of jejunum in the mid abdomen. The appearance suggests a nonspecific enteritis and clinical correlation will be required. 3. Additional findings as above. ACT 112: Negative or not required by law. Electronically signed by: Jethro Conroy M.D. 01/23/2022 10:35 AM Pending Results Patient Have Any Pending Studies at Discharge: Yes (gallbladder pathology) Discharge Instructions Given to Patient (Per Discharging Provider) PLEASE REFER TO YOUR NEW MEDICATION LIST AND FOLLOW INSTRUCTIONS CAREFULLY. YOUR NEW MEDICATIONS INCLUDE: Augmentin- antibiotic for gallbladder attack Tramadol- as needed for severe pain No Aspirin or NSAIDs (Ibuprofen, Naproxen, etc) for 5 days. Resume Metformin on 01/26/2022 to prevent kidney injury from IV contrast received while admitted. Drink plenty of fluids 6-8 glasses of water per day. PLEASE CALL YOUR PRIMARY CARE PHYSICIAN OR RETURN TO THE ER IF WITH WORSENING OF SYMPTOMS, INCLUDING abdominal pain, nausea/vomiting, fever/chills, yellowing of eyes/skin, etc FOLLOW UP WITH PRIMARY CARE PHYSICIAN OUTLINED ABOVE. FOLLOW UP WITH GENERAL SURGEON DR. LAZCANO AND [employer] DR. WHIPPLE IN 2 WEEKS. PLEASE CALL THEIR OFFICE FOR AN APPOINTMENT. CONTACT INFORMATION OUTLINED ABOVE. Total Time Total Time Spent Total Time Spent (In Minutes): > 30 minutes
== END 2022-01-24 18:13 | disposition home or self-care (01) | DRG 419 ==
LOC: ED 08:54 → EDINP 11:41 → SUATTDRO 11:41 → 2N 13:28